=== PATIENT | male | born 1935 ===

== ENCOUNTER 2017-09-05 08:19 | Inpatient (IN) | payer OTHER ==
[2017-08-22 13:57] VITALS: Ht 174 cm; Wt 68.4 kg
--- NOTE | 2017-08-22 14:52 | PAT Medication Instructions ---
Service Date Aug 22, 2017. Current Home Medication List Acetaminophen (Tylenol Arthritis Ext Rel), 650 MG PO BID Albuterol Hfa (Ventolin Hfa), Unknown Dose INH UD PRN for Shortness of Breath Albuterol Hfa (Ventolin Hfa), 2-4 PUFFS INH Q6H Aspirin (Aspirin Ec), 81 MG PO QAM Calcium (Calcium), 1 TAB PO QAM Isosorbide Mononitrate Ext Rel (Imdur Ext Rel), 1 TAB PO QAM Latanoprost (Xalatan 0.005% Oph Caroline), 1 DROPS OP HS Lisinopril (Zestril), 2.5 MG PO QAM Metoprolol Tartrate (Lopressor) (Lopressor), 12.5 MG PO HS Ocuvite Preservision (Ocuvite Preservision), 1 TAB PO QAM Ranitidine (Zantac), 1 TAB PO BID Simvastatin (Simvastatin), 1 TAB PO HS Tiotropium [place] (Spiriva Handihaler), 1 CAP INH QAM Tramadol (Ultram), 1 TAB PO Q6 PRN for Pain Trolamine Salicylate (Aspercreme), Unknown Dose TOP UD PRN for Pain Warfarin Sodium (Coumadin), 5 MG PO 5XWK Warfarin Sodium (Coumadin), 2.5 MG PO 2XWK Medication Instructions For Your Scheduled Surgery -Follow your prescriber's instructions for: Warfarin Sodium (Coumadin), 5 MG PO 5XWK Warfarin Sodium (Coumadin), 2.5 MG PO 2XWK - Hold the following medications 24 hours prior to surgery: Trolamine Salicylate (Aspercreme), Unknown Dose TOP UD PRN for Pain - Hold the following medications the morning of surgery: Lisinopril (Zestril), 2.5 MG PO QAM Calcium (Calcium), 1 TAB PO QAM - Take the following medications the morning of surgery with a sip of water: Tiotropium [place] (Spiriva Handihaler), 1 CAP INH QAM Tramadol (Ultram), 1 TAB PO Q6 PRN for Pain (if needed) Isosorbide Mononitrate Ext Rel (Imdur Ext Rel), 1 TAB PO QAM Albuterol Hfa (Ventolin Hfa), Unknown Dose INH UD PRN for Shortness of Breath ( if needed, and bring with you to the hospital) Acetaminophen (Tylenol Arthritis Ext Rel), 650 MG PO BID (can be taken up to four hours before surgery) Ranitidine (Zantac), 1 TAB PO BID Ocuvite Preservision (Ocuvite Preservision), 1 TAB PO QAM - Take the following medications as scheduled the night before surgery: Tramadol (Ultram), 1 TAB PO Q6 PRN for Pain (if needed) Simvastatin (Simvastatin), 1 TAB PO HS Latanoprost (Xalatan 0.005% Oph Caroline), 1 DROPS OP HS Aspirin (Aspirin Ec), 81 MG PO QAM Acetaminophen (Tylenol Arthritis Ext Rel), 650 MG PO BID Ranitidine (Zantac), 1 TAB PO BID Metoprolol Tartrate (Lopressor) (Lopressor), 12.5 MG PO HS If you have any questions please call us at [phone] or [phone] or [phone]
[2017-08-22 15:46] LABS: URINE APPEARANCE CLEAR (CLEAR); URINE BILIRUBIN NEG (NEG); URINE COLOR YELLOW; URINE NITRITE NEG (NEG); URINE PH 7.5 (4.5-7.5); URINE SPECIFIC GRAVITY 1.018 (1.000-1.030); UROBILINOGEN NEG (NEG)
[2017-08-22 15:47] LABS: MANUAL MICROSCOPIC REQUIRED? NO; REVIEW REQ? NO
[2017-08-22 15:47] LABS: BASO % 0.4 %; BASO ABS # 0.03 K/uL (0-0.2); COMPLETE YES; EOS % 0.8 %; IG% 0.4 %; LYMPH % 15.1 %; LYMPH ABS # 1.28 K/uL (1.2-3.4); MEAN CELL VOLUME 94.9 fL (80-100); MEAN CORPUSCULAR HEMOGLOBIN 30.9 pg (25-34); MEAN CORPUSCULAR HGB CONC 32.6 g/dl (32-36); MEAN PLATELET VOLUME 9.2 fL (7.4-10.4); MONO % 11.7 %; NEUT % 71.6 %; PLATELET COUNT 234 K/uL (130-400); RED BLOOD COUNT 4.11 M/uL (4.7-6.1); WHITE BLOOD COUNT 8.46 K/uL (4.8-10.8)
--- NOTE | 2017-08-22 15:52 | DIAGNOSTIC IMAGING REPORT ---
TWO VIEW CHEST CLINICAL HISTORY: Preoperative examination. FINDINGS: PA and lateral chest radiographs are obtained. No prior studies are available for comparison at the time of dictation. The heart is top normal for projection. There is atherosclerotic calcification of the thoracic aorta. Enlargement of the central pulmonary arteries suggests pulmonary artery hypertension. Emphysematous changes suspected. There is nonspecific interstitial thickening. Bibasilar airspace opacities likely represent scarring/atelectasis. There is no airspace consolidation typical for pneumonia or pleural effusion. There is no pneumothorax. The skeletal structures are osteopenic. Advanced degenerative change and mild hyperkyphosis are seen in the thoracic spine. Thoracic compression deformities are noted. IMPRESSION: 1. Suspect emphysema. No acute cardiopulmonary abnormality is identified. 2. Bibasilar airspace opacities likely represent scarring/atelectasis. Clinical correlation will be required. Electronically signed by: Efe Elder M.D. 08/22/2017 3:51 PM Dictated Date/Time: 08/22/2017 3:49 PM
[2017-08-22 15:53] LABS: BUN/CREATININE RATIO 12.5 (10-20); CALCIUM 8.8 mg/dl (8.5-10.1); CREATININE 1.01 mg/dl (0.60-1.40); POTASSIUM 4.5 mmol/L (3.5-5.1)
[2017-08-22 16:02] LABS: INR 3.5 (0.9-1.1); PARTIAL THROMBOPLASTIN RATIO 1.7; PROTHROMBIN TIME (PATIENT) 35.6 SECONDS (9.0-12.0)
[2017-08-23 06:18] LABS: ESTIMATED AVERAGE GLUCOSE 123 mg/dl; HA1C FLAG Normal (Normal)
--- NOTE | 2017-09-02 16:33 | History and Physical ---
History & Physical Date Sep 02, 2017. Chief Complaint Left shoulder pain History of Present Illness The patient is a 82 year old male with complaints of left shoulder pain for several years. He has tried conservative therapy with no relief. He will be scheduled for a left shoulder Rotator cuff repair, Subacromial decompression. Past Medical/Surgical History PMHx: Hypertension, Hypercholesterolemia, COPD, Sleep Apnea, TIA, Stent Placement, SOB with activity, Osteoarthritis Allergies Coded Allergies: No Known Allergies (Unverified , 08/22/17) Home Medications Scheduled Acetaminophen (Tylenol Arthritis Ext Rel), 650 MG PO BID Albuterol Hfa (Ventolin Hfa), 2-4 PUFFS INH Q6H Aspirin (Aspirin Ec), 81 MG PO QAM Calcium (Calcium), 1 TAB PO QAM Isosorbide Mononitrate Ext Rel (Imdur Ext Rel), 1 TAB PO QAM Latanoprost (Xalatan 0.005% Oph Caroline), 1 DROPS OP HS Lisinopril (Zestril), 2.5 MG PO QAM Metoprolol Tartrate (Lopressor) (Lopressor), 12.5 MG PO HS Ocuvite Preservision (Ocuvite Preservision), 1 TAB PO QAM Ranitidine (Zantac), 1 TAB PO BID Simvastatin (Simvastatin), 1 TAB PO HS Tiotropium [place] (Spiriva Handihaler), 1 CAP INH QAM Warfarin Sodium (Coumadin), 5 MG PO 5XWK Warfarin Sodium (Coumadin), 2.5 MG PO 2XWK Scheduled PRN Albuterol Hfa (Ventolin Hfa), Unknown Dose INH UD PRN for Shortness of Breath Tramadol (Ultram), 1 TAB PO Q6 PRN for Pain Trolamine Salicylate (Aspercreme), Unknown Dose TOP UD PRN for Pain Physical Examination Skin: warm/dry, no rash Eyes: normal inspection, EOMI ENT: normal ENT inspection Head: normocephalic, atraumatic Neck: supple, no adenopathy Respiratory/Chest: lungs clear, normal breath sounds Cardiovascular: regular rate, rhythm Abdomen / GI: normal bowel sounds, non tender Extremities: normal inspection, + pertinent finding (decreased ROM and strength of the left arm, (+) empty can test) Neurologic/Psych: no motor/sensory deficits, alert, oriented x 3 Diagnosis Left shoulder rotator cuff tear Plan of Treatment Patient is scheduled for a left shoulder rotator cuff repair subacromial decompression. He has failed conservative measures. He would like to proceed with surgery. Risks and benefits to surgery were discussed the patient and he understands the risks. He will go back on his coumadin after surgery.
[2017-09-05] VITALS (10 sets, daily range): BP systolic 111–138; BP diastolic 58–77; PULSE 70–105; TEMP 36.5–37.5; O2SAT 90–95
[~2017-09-05] VITALS: Ht 174 cm; Wt 68.4 kg
[~2017-09-05 08:19] MED LIST: ACET1TAB84 PO; ASPI81TA28 PO; ATROPINE SULFATE 0.1 MG/ML 5ML SYR IV PRN; CALC600T37 PO; CEFAZOLIN 1000MG IV PUSH 5 ML IV SCH; EpHEDrine SULFATE INJ 50 MG/ML AMP IV PRN; FENTANYL CITRATE INJ 50 MCG/1 ML 2 ML VIAL IV PRN; ISOS30TA35 PO; LACTATED RINGER'S 1000ML 1,000 ML IV SCH; LATA0.5S OP; LISI-729 PO; METO25TA56 PO; MULT-190 PO; ONDANSETRON INJ 2 MG/ML 2 ML VIAL IV PRN; ROPIVACAINE 0.5% 5 MG/ML 30 ML VIAL ONE; SIMV-150 PO; SPRIN/30 INH; TRAM-10 PO; TROL10LO TOP; VNTHFA/IN INH; WARF2TAB PO; WARF5TAB90 PO; ZNTT/150 PO
[2017-09-05] MEDS ORDERED: MIDAZOLAM HCL 1 MG/ML 2ML VIAL ONE (08:45)
[2017-09-05] MEDS ORDERED: FENTANYL CITRATE INJ 50 MCG/1 ML 2 ML VIAL ONE (08:46)
[2017-09-05] MEDS ORDERED: ENOX40IN SQ (08:57)
[2017-09-05 09:13] LABS: INR 1.1 (0.9-1.1); PROTHROMBIN TIME (PATIENT) 11.5 SECONDS (9.0-12.0)
--- NOTE | 2017-09-05 09:22 | History & Physical Bridge Note ---
H&P Re-Evaluation Bridge Note: I have examined the patient, reviewed the History & Physical and in the interval since the performance of the History & Physical I have noted the following changes of clinical significance: No changes noted
[2017-09-05] MEDS ORDERED: BUPIVACAINE 0.5 % 5 MG/1 ML MPF 30ML VIAL ONE (09:40)
[2017-09-05] MEDS ORDERED: EpINEphrine HCL INJ 1 MG/ML 5ML SYRINGE ONE (09:40)
[2017-09-05] MEDS ORDERED: BUPIVACAINE 0.25% 30 ML VIAL ONE (10:32)
[2017-09-05] MEDS ORDERED: GLYCOPYRROLATE INJ 0.2 MG/ML VIAL ONE (12:00)
[2017-09-05] MEDS ORDERED: NEOSTIGMINE METHYLSULFATE 5 MG/5 ML SYR ONE (12:00)
[2017-09-05] MEDS ORDERED: PROPOFOL IV EMULSION 10 MG/ML 20 ML VIAL IV ONE (12:00)
[2017-09-05] MEDS ORDERED: LIDOCAINE HCL 2% 2 ML VIAL (20MG/ML) ONE (12:00)
[2017-09-05] MEDS ORDERED: SODIUM CHLORIDE 0.9% 1000ML 1,000 ML IV SCH (12:23)
[2017-09-05] MEDS ORDERED: OXYC-57 PO (12:26)
[2017-09-05] MEDS ORDERED: OXYCODONE/ACETAMINOPHEN 5-325 TAB PO PRN ×2 (12:30)
[2017-09-05] MEDS ORDERED: ONDANSETRON INJ 2 MG/ML 2 ML VIAL IV PRN ×2 (12:30→16:45)
--- NOTE | 2017-09-05 12:31 | Discharge Instructions ---
Discharge Instructions Date of Service Sep 05, 2017. Admission Reason for Admission: Impingement Syndrome Of Left Shoulder, Unspecified Discharge Discharge Diagnosis / Problem: S/P left shoulder Rotator cuff repair, Subacromial decompression Discharge Goals Goal(s): Decrease discomfort, Improve function Activity Recommendations Activity Limitations: per Instructions/Follow-up section . Instructions / Follow-Up Instructions / Follow-Up [facility] DISCHARGE INSTRUCTIONS: ROTATOR CUFF REPAIR SELF CARE INSTRUCTIONS A. You are permitted to loosen your sling/immobilizer to move your elbow, wrist , and hand to prevent stiffness. You should use your well arm (good arm) to assist the operated extremity when trying to raise the arm away from the body, hygiene purposes. Do NOT actively try to use/engage your shoulder muscles in operative arm at this time. You should NOT do overhead activity, lifting, or attempt to reach behind your back. B. You may start Physical Therapy upon discharge. You will be provided a prescription for therapy with specific restrictions, if needed, at time of discharge. C. At 48 hours post-operatively, you may change your dressing. Use band-aids and change daily. You are allowed to shower at this time and get the incision area wet, but DO NOT soak or submerge incision area in water. (No baths, swimming pools, hot tubs) D. Do NOT apply soap or any ointment/lotions directly over incision. E. You may use ice as needed to operative shoulder SPECIAL CARE INSTRUCTIONS: VERY IMPORTANT TO READ AND REVIEW A. There are a few signs you need to watch for after you are home. Call [facility] at [phone] if you experience any of the following: a. Increased severe shoulder pain. Some pain is expected especially when you exercise b. Increased swelling in your shoulder or arm; pain or swelling in either upper extremity. (Note: swelling and stiffness is normal and expected for several weeks post op, depending on type of shoulder surgery you had). c. Any fluid or drainage from the incision; redness of the incision. d. Shortness of breath or chest pain. B. Please call [facility] at [phone] if you have any questions or concerns about your operation or recovery. C. Call your physician if: a. Temperature is greater than 101 degrees (F). b. Pain is not relieved by prescribed pain medications. c. Increase drainage or redness from incision. d. Unanswered questions or concerns. D. Pain Medication: a. You will be prescribed pain medication upon discharge that should last till your first post-operative appointment. b. If you experience nausea and/or skin rash, discontinue this medication and contact our office for an alternative medication. c. Caution- narcotic pain medication can cause constipation. FOLLOW UP VISIT: Please call [facility] at [phone] to schedule a follow up appointment 10-14 days from your surgery date with Dr. Lopez or his PA. PLEASE FOLLOW UP WITH YOUR COUMADIN CLINIC A 3-4 DAYS AFTER YOUR SURGERY TO MAKE SURE YOUR INR LEVELS ARE THERAPEUTIC. PLEASE TAKE LOVENOX FOR 2 DAYS WHILE STARTING UP YOUR COUMADIN AGAIN. YOU MAY START RIGHT AFTER YOUR SURGERY. Current Hospital Diet Patient's current hospital diet: Discharge Diet Recommended Diet: Regular Diet Procedures Procedures Performed: Left Shoulder Arthroscopic Subacromial Decompression and Rotator Cuff Repair Pending Studies Studies pending at discharge: no Laboratory Results Hemoglobin A1c Test 08/22/17 15:10 Range/Units Estimated Average Glucose 123 mg/dl Hemoglobin A1c 5.9 H 4.5-5.6 % Medical Emergencies . Who to Call and When: Medical Emergencies: If at any time you feel your situation is an emergency, please call 911 immediately. . Non-Emergent Contact Non-Emergency issues call your: Surgeon Call Non-Emergent contact if: temperature is above 101.5, your pain is worsening, wound has increased redness . "Provider Documentation" section prepared by Bill Munson. . VTE Core Measure Inpt VTE Proph given/why not?: Enoxaparin (Lovenox)SQ (patient previously on warfarin. ), Warfarin (Coumadin) [place] Drug Monitoring Program Search Results: patient reviewed within database, no issues identified
--- NOTE | 2017-09-05 13:47 | Anesthesiology Progress Note ---
Anesthesia Post Op Note Date & Time Sep 05, 2017 at 13:47 Vital Signs Pain Intensity: 0 Vital Signs Past 12 Hours Date Time Temp Pulse Resp B/P (MAP) Pulse Ox O2 Delivery O2 Flow Rate FiO2 09/05/17 13:20 36.5 70 20 138/59 92 Nasal Cannula 2 09/05/17 13:10 74 20 141/84 92 Oxymask 2 09/05/17 13:00 36.7 74 14 139/74 94 Nasal Cannula 2 09/05/17 12:50 73 21 154/70 98 Oxymask 10 09/05/17 12:40 72 21 149/93 98 Oxymask 10 09/05/17 12:30 82 20 162/80 98 Oxymask 10 09/05/17 12:22 36.5 85 22 146/92 98 Oxymask 10 09/05/17 08:59 36.7 86 20 123/77 (92) 95 Room Air Notes Mental Status: alert / awake / arousable, participated in evaluation Pt Amnestic to Procedure: Yes Nausea / Vomiting: adequately controlled Pain: adequately controlled Airway Patency, RR, SpO2: stable & adequate BP & HR: stable & adequate Hydration State: stable & adequate Anesthetic Complications: no major complications apparent
--- NOTE | 2017-09-05 13:53 | [facility] Operative Report ---
Operative Report Operative Date Sep 05, 2017. Pre-Operative Diagnosis Left shoulder rotator cuff tear, impingement, biceps tear, synovitis, labral tear Post-Operative Diagnosis Same Procedure(s) Performed Left Shoulder Arthroscopic Subacromial Decompression and Rotator Cuff Repair, biceps tenotomy, extensive debridement Surgeon Dr. Lopez Associate Software Engineer Surgeon(s) Bill Munson PA-C Estimated Blood Loss 2 cc Findings As above Specimens none per surgeon Drains none Anesthesia Gen. Complication(s) None Disposition Recovery Room / PACU Indications 82-year-old male long-standing pain left shoulder. His fell conservative measures including cortisone injections and therapy and a Saad to medications. We will also evaluate his cervical spine is found to not be treating factors shoulder pain. He wishes to proceed with arthroscopic rotator cuff repair. Description of Procedure The MRI demonstrated a full-thickness rotator cuff tear. We discussed various treatment measures. The patient wished to proceed with arthroscopic repair. Risks, benefits and alternatives to surgery including, but not limited to, infection DVT, pain, stiffness, need for revision surgery, failure to relieve all symptoms, damage to blood vessels, damage to nerves, risk of anesthesia were discussed with the patient and they wished to proceed. The patient was identified. Laterality was confirmed and marked. The patient received a preoperative antibiotic as well as an interscalene block. They were transferred to the operating room and placed in the supine position and induced into general endotracheal anesthesia per the anesthesia staff. The patient was then safely transferred to the lateral decubitus position, secured by a beanbag. An axillary roll was placed. All pressure points were well-padded. The limb was placed in 10 pounds of lateral traction and then prepped and draped in the usual standard manner with ChloraPrep. The portal sites were anesthetized with 2% lidocaine with epinephrine. I made a standard posterior viewing portal made through a stab incision and then bluntly entered the glenohumeral joint. Then under spinal needle localization, I establish an anterior superolateral portal. The patient had a full-thickness rotator cuff tear through the supraspinatus . They had a degenerative tear in the anterior, superior and posterior aspects of the glenoid labrum. This was debrided back to a stable base utilizing a shaver. Synovitic change in the anterior aspect of the joint was debrided utilizing a shaver. The cartilage of the humeral head and glenoid had some minor degeneration. There was tearing of the long head of the biceps tendon constituting greater than 50% thickness of the tendon. I released the biceps tendon from its insertion to the superior labrum with a cautery wand. The subscapularis had some minor fraying. I then removed the instrumentation from the joint and entered the subacromial space and established a lateral portal. There was a full-thickness rotator cuff tear that measured about 1 cm in diameter. I debrided the footprint with a shaver to establish a good bleeding response. Through a stab incision I placed a 5.5 mm HEALICOIL suture anchor. I passed the ultra braid sutures in a horizontal mattress with a fast passive scorpion. I then took 1 ULTRABRAID suture from each knot I placed them in a 5.5 mm Multifix S suture anchor. I then released the CA ligament with cautery and performed a subacromial decompression, first removing the anterior inferior spur from laterally and then completing with a cutting block technique. All instrumentation was then removed from the shoulder. Portal sites were closed with nylon. A sterile dressing was applied and a sling placed. All needle and sponge counts were correct at the end of the procedure. The patient was transferred to the PACU in stable condition without apparent complication. I attest to the content of the Intraoperative Record and any orders documented therein. Any exceptions are noted below.
--- NOTE | 2017-09-05 15:39 | Anesthesiology Progress Note ---
Anesthesia Progress Note Date of Service Sep 05, 2017. Progress Notes Mr. Alvarez was sent to same day recovery with the intent to wean from oxygen. After several hours he was unable to be fully removed from [place] oxygen despite him getting OOB, ambulating, urinating and using ISB. Of note, prior to surgery he became very short of breath just walking from the bed to the bathroom and back. I felt it was best patient remains in the hospital at least overnight with continuous pulse oximetry, supplemental oxygen and his BiPAP that he uses at home. Orthopedic surgeon is aware and plans to admit and consult internal medicine service for assistance with management. Patient and his family members are in agreement. All questions answered.
[2017-09-05] MEDS ORDERED: SOD PHOSPHATE/SOD BIPHOSPHATE ENEMA 132 ML BTL PR PRN (16:45)
[2017-09-05] MEDS ORDERED: MAGNESIUM HYDROXIDE SUSP 30 ML UDC PO PRN (16:45)
[2017-09-05] MEDS ORDERED: ALUMINUM/MAGNESIUM SUSP 30 ML UDC PO PRN (16:45)
[2017-09-05] MEDS ORDERED: BISACODYL 10 MG SUPP PR PRN (16:45)
[2017-09-05] MEDS ORDERED: ZOLPIDEM TARTRATE 5 MG TAB PO PRN (16:45)
[2017-09-05] MEDS: FERROUS GLUCONATE 324 MG TAB PO SCH (18:00)
[2017-09-05] MEDS ORDERED: NURSING DECISION MEDICATION ORDER SCH (19:30)
[2017-09-05] MEDS ORDERED: COUGH DROP (SUGAR FREE) LOZ 24 LOZ/1 BOX PO PRN (19:45)
--- NOTE | 2017-09-05 19:53 | Consultant Recommendations ---
[employer] Recommendations Date of Service Sep 05, 2017. [employer] Recommendations Unable to correct warfarin dosing on med rec but per PCP, patient is to be on warfarin 5mg today (09/05/17) and tomorrow. He is then to follow up with PCP to check INR and reevaluate dosing. Please make sure patient is discharged on correct dose.
--- NOTE | 2017-09-05 19:55 | Medical Consult ---
Consultation Date of Consultation: Sep 05, 2017. Attending Physician: Chidi Lopez M.D. Reason for Consultation: Post-op medical management History of Present Illness This is an 82yo M with a PMH of COPD, HTN, HLD, JESSICA (on cpap), CAD (s/p stenting in 2012), h/o TIA and OA who is POD#0 s/p left TSA with rotator cuff repair. Patient sees Dr. Knowles of [facility] as his PCP. Is doing well post- operatively. Was initially supposed to be discharged today but due to patients SOB and requirement of O2, he is being kept overnight for observation. Patient states that he has exertional dyspnea and wheezing at baseline but does not use home O2. States that he uses his inhalers regularly. Per discussion with daughter, patient seems more SOB post-operatively than his normal baseline. 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 He has been on alliances consultant anticoagulation with coumadin as a result. Coumadin was stopped pre-operatively with instructions from his PCP to restart directly following surgery as well as bridging with lovenox until coumadin is therapeutic. Denies any fever, chills, pain in his shoulder, chest pain, abd pain, nausea, vomiting, dysuria, LE swelling. Has been urinating frequently post-operatively. Tolerated dinner without a problem. Past Medical/Surgical History Medical Problems: (1) COPD (chronic obstructive pulmonary disease) Status: Chronic (2) H/O TIA (transient ischemic attack) and stroke Status: Chronic (3) HLD (hyperlipidemia) Status: Chronic (4) HTN (hypertension) Status: Chronic (5) JESSICA on CPAP Status: Chronic (6) Presence of stent in coronary artery in patient with coronary artery disease Status: Chronic Surgical Problems: (1) Status post reverse total arthroplasty of left shoulder Status: Resolved Family History Father with DM II and HTN. Social History Smoking Status: Former Smoker Alcohol Use: occasionally Marital Status: Housing Status: lives with significant other Occupation Status: retired Allergies Coded Allergies: No Known Allergies (Unverified , 09/05/17) Home Medications Home Meds and Scripts Medications Dose Route/Sig Max Daily Dose Days Date Category Dose Instructions Percocet 5MG/325MG (Oxycodone/Acetaminophen) Tab 1-2 Tablets PO Q4-6H PRN 09/05/17 Rx Lovenox (Enoxaparin Sodium) 40 Mg/0.4 Ml Inj 40 Mg SQ Q12H 09/05/17 Reported Ventolin Hfa (Albuterol) 200 Puffs/29923 Mcg Aers 2-4 Puffs INH Q6H 08/22/17 Reported Aspercreme (Trolamine Salicylate) Unknown Strength Lot Unknown Dose TOP UD PRN 08/22/17 Reported Xalatan 0.005% Oph Caroline (Latanoprost) 0.005 % Caroline 1 Drops OP HS 08/22/17 Reported Lopressor (Metoprolol Tartrate) 25 Mg Tab 12.5 Mg PO HS 08/22/17 Reported Simvastatin 10 Mg Tab 1 Tab PO HS 08/22/17 Reported Coumadin (Warfarin Sodium) 2 Mg Tab 2.5 Mg PO 2XWK 08/22/17 Reported WED AND SAT - TAKES IN PM PT RECEIVED INSTRUCTIONS FOR PREOP LOVENOX BY PCP Coumadin (Warfarin Sodium) 5 Mg Tab 5 Mg PO 5XWK 08/22/17 Reported SUN, MON, TUE, THUR AND FRI - TAKES IN PM HAS PRE OP INSTRUCTIONS FOR LOVENOX BY FAMILY DOC Aspirin Ec (Aspirin) 81 Mg Tab 81 Mg PO QAM 08/22/17 Reported Spiriva Handihaler (Tiotropium Lagrange) 30 Puff/540 Mcg Aerp 1 Cap INH QAM 08/22/17 Reported Zantac (Ranitidine HCl) 150 Mg Tab 1 Tab PO BID 30 08/22/17 Reported Imdur Ext Rel (Isosorbide Mononitrate) 30 Mg Tabcr 1 Tab PO QAM 08/22/17 Reported Zestril (Lisinopril) 5 Mg Tab 2.5 Mg PO QAM 08/22/17 Reported Ocuvite Preservision (Multivitamins/Minerals) 1 Tab Tab 1 Tab PO QAM 08/22/17 Reported Calcium 600 Mg Tab 1 Tab PO QAM 08/22/17 Reported Tylenol Arthritis Ext Rel (Acetaminophen) 650 Mg Cplt 650 Mg PO BID 08/22/17 Reported Current Inpatient Medications Current Inpatient Medications Medications (Trade) Dose Ordered Sig/Fede Route Start Time Stop Time Status Last Admin Dose Admin Lactated Ringer's 1,000 ml @ 15 mls/hr Q24H IV 09/05/17 06:00 09/06/17 05:59 09/05/17 09:26 15 MLS/HR Sodium Chloride 1,000 ml @ 15 mls/hr Q24H IV 09/05/17 12:23 09/06/17 12:22 09/05/17 18:46 15 MLS/HR Oxycodone/ Acetaminophen (Percocet 5-325mg Tab) `1-2 TABS FOR PAIN `1 TAB... Q6H PRN PO 09/05/17 16:45 09/19/17 16:44 Diphenhydramine HCl (Benadryl Cap) 25 mg Q8 PRN PO 09/05/17 16:45 10/05/17 16:44 Zolpidem Tartrate (Ambien Tab) 5 mg HSZ PRN PO 09/05/17 16:45 10/05/17 16:44 Ondansetron HCl (Zofran Inj) 4 mg Q6H PRN IV 09/05/17 16:45 10/05/17 16:44 Al Hydroxide/Mg Hydroxide (Maalox Susp) 30 ml Q4H PRN PO 09/05/17 16:45 10/05/17 16:44 Pantoprazole Sodium (Protonix Tab) 40 mg QAM PO 09/06/17 09:00 10/06/17 08:59 Magnesium Hydroxide (Milk Of Magnesia Susp) 30 ml Q6H PRN PO 09/05/17 16:45 10/05/17 16:44 Bisacodyl (Dulcolax Supp) 10 mg DAILY PRN [place] 09/05/17 16:45 10/05/17 16:44 Sodium Biphosphate/ Sodium Phosphate (Fleet Enema) 132 ml DAILY PRN [place] 09/05/17 16:45 10/05/17 16:44 Senna (Senokot Tab) 17.2 mg HS PO 09/05/17 21:00 10/05/17 20:59 Docusate Sodium (coLACE CAP) 100 mg BID PO 09/05/17 21:00 10/05/17 20:59 Multivitamins (Multivitamin Tab) 1 tab DAILY PO 09/06/17 09:00 10/06/17 08:59 Ferrous Gluconate (Ferrous Gluconate Tab) 324 mg TIDM PO 09/05/17 18:00 10/05/17 17:59 Menthol (Nice Valencia) 1 valencia PRN PRN PO 09/05/17 19:45 10/05/17 19:44 Enoxaparin Sodium (Lovenox Inj) 40 mg Q24H SC 09/05/17 19:45 10/05/17 19:44 UNV Miscellaneous (Xopenex/ Atrovent Neb) 1 ea Q6R INH 09/05/17 21:00 10/05/17 20:59 UNV Review of Systems Ten systems reviewed and negative except as noted in the HPI. Physical Exam Date Time Temp Pulse Resp B/P (MAP) Pulse Ox O2 Delivery O2 Flow Rate FiO2 09/05/17 19:37 36.8 86 16 126/58 (80) 95 Nasal Cannula 3.0 09/05/17 17:00 87 20 127/68 94 Nasal Cannula 2 09/05/17 16:00 84 20 116/64 95 Nasal Cannula 2 09/05/17 15:00 79 20 111/61 94 Nasal Cannula 2 09/05/17 13:50 76 20 126/70 93 Nasal Cannula 2 09/05/17 13:20 36.5 70 20 138/59 92 Nasal Cannula 2 09/05/17 13:10 74 20 141/84 92 Oxymask 2 09/05/17 13:00 36.7 74 14 139/74 94 Nasal Cannula 2 09/05/17 12:50 73 21 154/70 98 Oxymask 10 09/05/17 12:40 72 21 149/93 98 Oxymask 10 09/05/17 12:30 82 20 162/80 98 Oxymask 10 09/05/17 12:22 36.5 85 22 146/92 98 Oxymask 10 09/05/17 08:59 36.7 86 20 123/77 (92) 95 Room Air General Appearance: WD/WN, no apparent distress (Resting comfortable with NC O2. Intermittent accessory muscle use when talking. ) Head: normocephalic, atraumatic Eyes: normal inspection, PERRL, sclerae normal ENT: normal ENT inspection, hearing grossly normal, pharynx normal (moist mucous membranes ) Neck: supple, no JVD, trachea midline Respiratory/Chest: chest non-tender, no respiratory distress, + decreased breath sounds, + wheezing (Scattered expiratory wheezing ), + pertinent finding (Occasional accessory muscle use when patient is exerting himself ) Cardiovascular: regular rate, rhythm, no murmur, normal peripheral pulses Abdomen/GI: non tender, soft, no organomegaly Back: normal inspection Extremities/Musculoskelatal: normal inspection, no calf tenderness, no pedal edema Neurologic/Psych: no motor/sensory deficits, alert, normal mood/affect, oriented x 3 Skin: normal color, warm/dry, no rash Laboratory Results Last 24 Hours Test 09/05/17 08:57 Prothrombin Time 11.5 SECONDS Prothromb Time International Ratio 1.1 Activated Partial Thromboplast Time 26.8 SECONDS Partial Thromboplastin Ratio 1.0 Assessment & Plan This is an 82yo M with a PMH of COPD, HTN, HLD, JESSICA (on cpap), CAD (s/p stenting in 2012), h/o TIA and OA who is POD#0 s/p left TSA with rotator cuff repair. S/p Left TSA with rotator cuff: -POD#[address] Lopez -Pt is doing well post-operatively -Per ortho for pain control, wound care, anticoagulation and activities -Monitor H&H, continue incentive spirometry, PT/OT when appropriate Shortness of breath: -2/2 underlying moderate COPD, possible fluid overload biju-operatively -No known CHF -O2 saturation in mid-90s on 3L NC O2 -Xopenex nebulizers -Cont home inhalers -20mg IV lasix x 1 HTN: -Normotensive -Cont lisinopril, imdur, metoprolol in AM with parameters HLD: -Cont statin JESSICA (on cpap): -Using own cpap CAD (s/p stenting in 2012): -Stable. No CP or ischemic change on EKG -Cont aspirin, imdur, metoprolol H/o TIA: -Per surgery, please follow up with coumadin clinic 3-4 days after to reassess INR levels -Bridge with lovenox for 2 days while re-initiating warfarin at 5mg daily DVT Ppx: Lovenox SQ, warfarin reinitiated Code status: FULL PCP: [facility] ([facility]) Dispo: Per ortho Patient seen in collaboration with Dr. Richard. Please see addendum. Will be seen by Dr Aragon tomorrow. Attending Addendum: S/P Left Shoulder replacement with H/O COPD ,JESSICA Required prolong period to wean off oxygen following surgery Desaturation ,with wheezing and SOB No Chest pain,palpitation O/E Moderate SOB at rest Hemodynamically stable Chest-decreased breath sound bilaterally with widespread wheezing Heart- Regular,no murmur appreciated Abdomen-benign Labs and Imaging studies were reviewed Mild COPD exacerbation following Anesthesia No CHF and Cardiac issue Nebs,Oxygen,IV Lasix and CPAP Reassured Agree with assessment and plan. Dr Malcolm Richard Thank you for this consultation. We will follow the patient with you during their hospital stay. You can reach a member of the [facility] Hospitalist Team 08/04 via pager @ .
[2017-09-05] MEDS ORDERED: IV FLUIDS COMPLETED PRN (20:00)
--- NOTE | 2017-09-05 20:22 | DIAGNOSTIC IMAGING REPORT ---
CHEST ONE VIEW PORTABLE HISTORY: Short of breath. COMPARISON: Chest 08/22/2017. FINDINGS: Mild elevation of the left hemidiaphragm. This has slightly progressed. No pneumothorax. No pleural effusions. Mild diffuse interstitial thickening is likely chronic. Left basilar linear densities favor subsegmental atelectasis. The right lung is essentially clear. The heart is normal in size. IMPRESSION: Mild elevation of the left hemidiaphragm with left basilar linear densities suggesting subsegmental atelectasis. Electronically signed by: Florencio Obrien M.D. 09/05/2017 8:20 PM Dictated Date/Time: 09/05/2017 8:19 PM
[2017-09-05] MEDS: OXYCODONE/ACETAMINOPHEN 5-325 TAB PO PRN (20:27)
[2017-09-05] MEDS ORDERED: FUROSEMIDE INJ 20 MG in SYRINGE 0 ML IV ONE (20:30)
[2017-09-05] MEDS: DOCUSATE SODIUM 100 MG CAP PO SCH (20:30)
[2017-09-05] MEDS: SENNA 8.6 MG TAB PO SCH (20:30)
[2017-09-05] MEDS: WARFARIN SOD 5 MG TAB PO SCH (20:31)
[2017-09-05] MEDS ORDERED: LEVALBUTEROL 1.25MG/0.5ML NEB INH ONE (20:45)
[2017-09-05] MEDS ORDERED: LEVALBUTEROL 1.25MG/0.5ML NEB INH PRN (20:45)
[2017-09-05] MEDS ORDERED: IPRATROPIUM BROMIDE NEB SOLN 0.02% 2.5 ML VIAL INH PRN (20:45)
[2017-09-05] MEDS ORDERED: IPRATROPIUM BROMIDE NEB SOLN 0.02% 2.5 ML VIAL INH ONE (20:45)
[2017-09-05] MEDS ORDERED: IPRATROPIUM BROMIDE NEB SOLN 0.02% 2.5 ML VIAL INH SCH (21:00)
[2017-09-05] MEDS ORDERED: LEVALBUTEROL/IPRATROPIUM NEB INH SCH (21:00)
[2017-09-05] MEDS ORDERED: LEVALBUTEROL 1.25MG/0.5ML NEB INH SCH (21:00)
[2017-09-05] MEDS: ENOXAPARIN 40 MG/0.4 ML SYR SC SCH (21:03)
[2017-09-06] VITALS (8 sets, daily range): BP systolic 121–153; BP diastolic 74–83; PULSE 80–96; TEMP 36.6–37.4; O2SAT 87–96
[2017-09-06] MEDS: OXYCODONE/ACETAMINOPHEN 5-325 TAB PO PRN ×4 (00:27→18:25)
[2017-09-06 05:42] LABS: HEMATOCRIT 37.6 % (42-52); MEAN CELL VOLUME 94.7 fL (80-100); MEAN CORPUSCULAR HEMOGLOBIN 30.5 pg (25-34); MEAN CORPUSCULAR HGB CONC 32.2 g/dl (32-36); MEAN PLATELET VOLUME 9.6 fL (7.4-10.4); PLATELET COUNT 147 K/uL (130-400); RED BLOOD COUNT 3.97 M/uL (4.7-6.1); WHITE BLOOD COUNT 8.97 K/uL (4.8-10.8)
[2017-09-06 05:54] LABS: INR 1.1 (0.9-1.1); PROTHROMBIN TIME (PATIENT) 11.2 SECONDS (9.0-12.0)
[2017-09-06 06:09] LABS: BUN/CREATININE RATIO 13.2 (10-20); CREATININE 1.09 mg/dl (0.60-1.40); MAGNESIUM 1.8 mg/dl (1.8-2.4)
--- NOTE | 2017-09-06 08:24 | Anesthesiology Progress Note ---
Anesthesia Post Op Note Date & Time Sep 06, 2017 at 08:24 Vital Signs Pain Intensity: 2.0 Vital Signs Past 12 Hours Date Time Temp Pulse Resp B/P (MAP) Pulse Ox O2 Delivery O2 Flow Rate FiO2 09/06/17 07:34 36.6 89 19 143/83 (103) 96 Nasal Cannula 2.0 09/06/17 07:25 Nasal Cannula 2.0 09/06/17 06:02 96 Nasal Cannula 2.0 09/06/17 06:00 87 Room Air 09/06/17 03:29 37.2 87 16 137/79 (98) 96 CPAP 09/06/17 00:30 80 09/06/17 00:30 CPAP 09/05/17 22:52 37.5 105 18 124/73 (90) 94 CPAP 09/05/17 21:44 Nasal Cannula 2.0 94 BiPAP 09/05/17 21:20 86 20 90 Nasal Cannula 3.0 Notes Mental Status: alert / awake / arousable, participated in evaluation Pt Amnestic to Procedure: Yes Nausea / Vomiting: adequately controlled Pain: adequately controlled Airway Patency, RR, SpO2: stable & adequate BP & HR: stable & adequate Hydration State: stable & adequate Anesthetic Complications: no major complications apparent
[2017-09-06] MEDS: MULTIVITAMIN TAB PO SCH (08:36)
[2017-09-06] MEDS: FERROUS GLUCONATE 324 MG TAB PO SCH ×3 (08:36→19:06)
[2017-09-06] MEDS: DOCUSATE SODIUM 100 MG CAP PO SCH ×2 (08:37→21:17)
[2017-09-06] MEDS: PANTOprazole SOD 40 MG TAB PO SCH (08:37)
--- NOTE | 2017-09-06 14:46 | Orthopedic Progress Note ---
Orthopedic Progress Note Date of Service Sep 06, 2017. Subjective Post OP Day: 1 Reports: feeling well, pain controlled w PO medications, Denies: complaints, chest pain, SOB, nausea / vomiting, light headedness, calf pain Objective calves soft nontender, N/V intact, capillary refill less than 2 sec., dressing C /D/I, A&O x3, toes mobile Date Time Temp Pulse Resp B/P (MAP) Pulse Ox O2 Delivery O2 Flow Rate FiO2 09/06/17 12:07 36.8 80 18 153/80 (104) 95 Nasal Cannula 2.0 09/06/17 07:34 36.6 89 19 143/83 (103) 96 Nasal Cannula 2.0 09/06/17 07:25 Nasal Cannula 2.0 09/06/17 06:02 96 Nasal Cannula 2.0 09/06/17 06:00 87 Room Air 09/06/17 03:29 37.2 87 16 137/79 (98) 96 CPAP 09/06/17 00:30 80 09/06/17 00:30 CPAP 09/05/17 22:52 37.5 105 18 124/73 (90) 94 CPAP 09/05/17 21:44 Nasal Cannula 2.0 94 BiPAP 09/05/17 21:20 86 20 90 Nasal Cannula 3.0 09/05/17 19:37 36.8 86 16 126/58 (80) 95 Nasal Cannula 3.0 09/05/17 17:50 92 Nasal Cannula 2.0 09/05/17 17:50 36.8 92 22 134/72 (92) 92 Nasal Cannula 2.0 09/05/17 17:50 92 Nasal Cannula 2.0 09/05/17 17:00 87 20 127/68 94 Nasal Cannula 2 09/05/17 16:00 84 20 116/64 95 Nasal Cannula 2 09/05/17 15:00 79 20 111/61 94 Nasal Cannula 2 Laboratory Results 24 Hours: Test 09/06/17 05:29 Hematocrit 37.6 % Hemoglobin 12.1 g/dL Prothromb Time International Ratio 1.1 Prothrombin Time 11.2 SECONDS Assessment & Plan Assessment: POD#1 Left shoulder Rotator Cuff Repair, subacromial decompression. Plan: Medical Management - Patient is being weaned off oxygen hopeful to go home today if able to be weaned off oxygen. Outpatient PT Remain in sling for 6 weeks Inhouse Planning Pain Management: Percocet Discharge Planning Discharge Planning: home with oppt
[2017-09-06] MEDS: WARFARIN SOD 5 MG TAB PO SCH (16:25)
--- NOTE | 2017-09-06 19:26 | Progress Note ---
Internal Med Progress Note Date of Service: Sep 06, 2017. Provider Documentation: SUBJECTIVE: SITTING ON THE CHAIR COMFORTABLY AFEBRILE DENIES CHEST PAIN OR SOB WANTS TO GO HOME OBJECTIVE: Vital Signs-as noted below Exam: General-alert and oriented. not in distress ENT-Normal hearing Neck-no neck masses Lungs-Cta b/l no wheezing or crackles Heart-S1 and S2 heard regular No murmurs Abdomen-Soft Bowel sounds present Non tender No distension Extremities- left shoulder in sling Neuro- alert and awake moves extremities Lab data as noted below. ASSESSMENT & PLAN: This is an 82yo M with a PMH of COPD, HTN, HLD, JESSICA (on cpap), CAD (s/p stenting in 2012), h/o TIA and OA who is POD#0 s/p left TSA with rotator cuff repair. S/p Left TSA with rotator cuff: POD#[address] Lopez management as per ortho Shortness of breath: 2/2 underlying moderate COPD, possible fluid overload biju-operatively No known CHF received a dose of lasix dong fine today home inhalers nebs prn s/p two step and requiring 2lts oxygen while ambulating HTN: on lisinopril, imdur, metoprolol in AM with parameters HLD: on statin JESSICA (on cpap): Using own cpap CAD (s/p stenting in 2012): Stable.On aspirin, imdur, metoprolol H/o TIA: Per surgery, please follow up with coumadin clinic 3-4 days after to reassess INR levels To Bridge with lovenox for 2 days while re-initiating warfarin at 5mg daily DVT Ppx: Lovenox SQ, warfarin reinitiated Code status: FULL PCP: [facility] ([facility]) Dispo: Per ortho Vital Signs: Date Time Temp Pulse Resp B/P (MAP) Pulse Ox O2 Delivery O2 Flow Rate FiO2 09/06/17 15:16 36.7 87 18 121/78 (92) 94 Room Air 09/06/17 12:07 36.8 80 18 153/80 (104) 95 Nasal Cannula 2.0 09/06/17 07:34 36.6 89 19 143/83 (103) 96 Nasal Cannula 2.0 09/06/17 07:25 Nasal Cannula 2.0 09/06/17 06:02 96 Nasal Cannula 2.0 09/06/17 06:00 87 Room Air 09/06/17 03:29 37.2 87 16 137/79 (98) 96 CPAP 09/06/17 00:30 80 09/06/17 00:30 CPAP 09/05/17 22:52 37.5 105 18 124/73 (90) 94 CPAP 09/05/17 21:44 Nasal Cannula 2.0 94 BiPAP 09/05/17 21:20 86 20 90 Nasal Cannula 3.0 09/05/17 19:37 36.8 86 16 126/58 (80) 95 Nasal Cannula 3.0 Lab Results: Results Past 24 Hours Test 09/06/17 05:29 Range/Units White Blood Count 8.97 4.8-10.8 K/uL Red Blood Count 3.97 4.7-6.1 M/uL Hemoglobin 12.1 14.0-18.0 g/dL Hematocrit 37.6 42-52 % Mean Corpuscular Volume 94.7 80-100 fL Mean Corpuscular Hemoglobin 30.5 25-34 pg Mean Corpuscular Hemoglobin Concent 32.2 32-36 g/dl RDW Standard Deviation 48.9 36.4-46.3 fL RDW Coefficient of Variation 14.1 11.5-14.5 % Platelet Count 147 130-400 K/uL Mean Platelet Volume 9.6 7.4-10.4 fL Prothrombin Time 11.2 9.0-12.0 SECONDS Prothromb Time International Ratio 1.1 0.9-1.1 Sodium Level 137 136-145 mmol/L Potassium Level 4.0 3.5-5.1 mmol/L Chloride Level 103 98-107 mmol/L Carbon Dioxide Level 28 21-32 mmol/L Anion Gap 6.0 3-11 mmol/L Blood Urea Nitrogen 14 7-18 mg/dl Creatinine 1.09 0.60-1.40 mg/dl Est Creatinine Clear Calc Drug Dose 49.7 ml/min Estimated GFR () 72.4 Estimated GFR (Non- 62.4 BUN/Creatinine Ratio 13.2 10-20 Random Glucose 113 70-99 mg/dl Calcium Level 8.0 8.5-10.1 mg/dl Magnesium Level 1.8 1.8-2.4 mg/dl
[2017-09-06] MEDS: SENNA 8.6 MG TAB PO SCH (21:00)
[2017-09-06] MEDS: ENOXAPARIN 40 MG/0.4 ML SYR SC SCH (21:17)
[2017-09-07] MEDS: OXYCODONE/ACETAMINOPHEN 5-325 TAB PO PRN ×3 (00:53→13:54)
[2017-09-07 06:20] LABS: INR 1.2 (0.9-1.1); PROTHROMBIN TIME (PATIENT) 12.3 SECONDS (9.0-12.0)
[2017-09-07 07:35] VITALS: BP 161/88; PULSE 85; TEMP 36.8; O2SAT 96
[2017-09-07] MEDS: FERROUS GLUCONATE 324 MG TAB PO SCH ×2 (08:28→12:36)
[2017-09-07] MEDS: MULTIVITAMIN TAB PO SCH (08:28)
[2017-09-07] MEDS: PANTOprazole SOD 40 MG TAB PO SCH (08:28)
--- NOTE | 2017-09-07 08:49 | Orthopedic Progress Note ---
Orthopedic Progress Note Date of Service Sep 07, 2017. Subjective Post OP Day: 2 Reports: feeling well, Denies: complaints Additional Notes: Discussed that he would need a 2 step test to see if he needs home O2. Otherwise, he feels fine. Hoping to go home today. Having some numbness in his 5th finger which comes and goes. Discussed that it's likely due to his sling and that he can loosen the sling to extend his elbow/wrist on occasion. Objective dressing C/D/I, A&O x3, CMS intact Date Time Temp Pulse Resp B/P (MAP) Pulse Ox O2 Delivery O2 Flow Rate FiO2 09/07/17 07:35 36.8 85 16 161/88 (112) 96 Nasal Cannula 1.5 09/06/17 23:15 BiPAP 09/06/17 22:50 37.4 96 16 145/74 (97) 96 BiPAP 2.0 09/06/17 16:00 Room Air Nasal Cannula 09/06/17 15:16 36.7 87 18 121/78 (92) 94 Room Air 09/06/17 12:07 36.8 80 18 153/80 (104) 95 Nasal Cannula 2.0 Laboratory Results 24 Hours: Test 09/07/17 05:50 Prothromb Time International Ratio 1.2 Prothrombin Time 12.3 SECONDS Assessment & Plan Assessment: POD#2 Left shoulder Rotator Cuff Repair, subacromial decompression. Plan: Medical Management - Patient awaiting 2 step test to see if he needs home O2 Outpatient PT Remain in sling for 6 weeks Plan for dc today when ok with Med Service Inhouse Planning Pain Management: Percocet DVT Prophylaxis: Coumadin, Lovenox Discharge Planning Discharge Planning: home with oppt Pain Management: Percocet DVT Prophylaxis: Coumadin Therapy: Physical Therapy
[2017-09-07] MEDS: DOCUSATE SODIUM 100 MG CAP PO SCH (09:13)
[2017-09-07] MEDS ORDERED: OXGN (09:35)
[2017-09-07 10:08] VITALS: BP 123/73
[2017-09-07 11:24] VITALS: O2SAT 97
[2017-09-07] MEDS: WARFARIN SOD 5 MG TAB PO SCH (13:54)
[2017-09-07 13:59] VITALS: BP 123/73; PULSE 85; TEMP 36.8; O2SAT 97
--- NOTE | 2017-09-17 16:40 | Discharge Summary ---
Orthopedic Discharge Summary Admission Date/Reason Sep 05, 2017 at 18:19 Impingement Syndrome Of Left Shoulder, Unspecified. Discharge Date/Disposition Sep 05, 2017 Home Diagnosis Principal Diagnosis: S/P Left shoulder RCR, SAD, DCE Medication Reconciliation as per discharge instructions Admission Physical Exam As per Admitting History & Physical. Hospital Course POD#1 patient was on tele floor due to his oxygen saturations going down. He was told that we would have to try and wean him off the O2. He was unable to get off of O2 POD#1. POD#2 patient was doing well with no complaints. He will be held off of PT for 2 weeks. He will follow up with pulmonology for further evaluation of his O2 sats. He was discharged POD#2 Discharge Instructions Please refer to the electronic Patient Visit Report (Discharge Instructions) for additional information.
== END 2017-09-07 14:33 | disposition home or self-care (01) | DRG 502 ==
LOC: C.ACU 08:19 → C.3E 16:36 → ENRESERV 17:11 → OBSVTOIN 18:19
PROVIDERS: ADMIT Orthopaedic Surgery; ATTEND Orthopaedic Surgery
PROC: 0LN24ZZ Release Left Shoulder Tendon, Percutaneous Endoscopic Approach (ICD-10-PCS; principal; 2017-09-05 10:30)
PROC: 0RNK4ZZ Release Left Shoulder Joint, Percutaneous Endoscopic Approach (ICD-10-PCS; principal; 2017-09-05 10:30)
PROC: 0LM24ZZ Reattachment of Left Shoulder Tendon, Percutaneous Endoscopic Approach (ICD-10-PCS; principal; 2017-09-05 10:30)
DX: M75.42 Impingement syndrome of left shoulder (principal); M75.102 Unspecified rotator cuff tear or rupture of left shoulder, not specified as traumatic; R06.02 Shortness of breath; E87.70 Fluid overload, unspecified; J44.9 Chronic obstructive pulmonary disease, unspecified; I25.10 Atherosclerotic heart disease of native coronary artery without angina pectoris; I65.1 Occlusion and stenosis of basilar artery; I10 Essential (primary) hypertension; E78.00 Pure hypercholesterolemia, unspecified; E78.5 Hyperlipidemia, unspecified; M19.90 Unspecified osteoarthritis, unspecified site; G47.33 Obstructive sleep apnea (adult) (pediatric); Z99.89 Dependence on other enabling machines and devices; Z86.73 Personal history of transient ischemic attack (TIA), and cerebral infarction without residual deficits; Z95.5 Presence of coronary angioplasty implant and graft; Z79.01 Long term (current) use of anticoagulants; Z79.891 Long term (current) use of opiate analgesic; Z79.82 Long term (current) use of aspirin; Z79.899 Other long term (current) drug therapy

== ENCOUNTER 2017-12-03 15:32 | Inpatient (IN) | payer OTHER ==
[~2017-12-03] VITALS: Ht 172.7 cm; Wt 65.9 kg
[2017-12-03 15:09] VITALS: BP 115/64; PULSE 87; TEMP 37.1; O2SAT 93
[~2017-12-03 15:32] MED LIST changes: -ATROPINE SULFATE 0.1 MG/ML 5ML SYR IV PRN; -CEFAZOLIN 1000MG IV PUSH 5 ML IV SCH; +ENOX40IN SQ; -EpHEDrine SULFATE INJ 50 MG/ML AMP IV PRN; -FENTANYL CITRATE INJ 50 MCG/1 ML 2 ML VIAL IV PRN; -LACTATED RINGER'S 1000ML 1,000 ML IV SCH; -ONDANSETRON INJ 2 MG/ML 2 ML VIAL IV PRN; +OXGN; +OXYC-57 PO; +RANI150T85 PO; -ROPIVACAINE 0.5% 5 MG/ML 30 ML VIAL ONE; -TRAM-10 PO; -ZNTT/150 PO
[2017-12-03 16:06] VITALS: BMI 22.1
[2017-12-03] MEDS ORDERED: ONDANSETRON INJ 2 MG/ML 2 ML VIAL IV PRN (17:00)
[2017-12-03] MEDS ORDERED: ALUMINUM/MAGNESIUM/SIMETH (MAALOX MAX) 30 ML UDC PO PRN (17:00)
[2017-12-03] MEDS ORDERED: POLYETHYLENE (MIRALAX) 17 GM PACK PO PRN (17:00)
[2017-12-03] MEDS ORDERED: ACETAMINOPHEN 325 MG TAB PO PRN (17:00)
--- NOTE | 2017-12-03 17:17 | History and Physical ---
History & Physical Date & Time of Service: Dec 03, 2017 at 17:02 Chief Complaint: Gross Hematuria, Shortness Of Breath Primary Care Physician: Surjit Knowles M.D. History of Present Illness Source: patient, family (Daughter) Mr. 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 Upon initial presentation to [facility], patient had multiple complaints. On 11/24 he was seen in the emergency department for lower back pain. However he was discharged home and followed up on 11/25 with his PCP however collapsed in the parking lot due to this back pain. He represented to the emergency department at [facility], and was found to have herniated disks and possibly old compression fracture at L1. During his admission there, he is reporting improvement in his back pain with Lidoderm patch and was being seen by PT/OT. He also presented with abdominal pain and was found to have significant stool burden and underwent multiple regimens to move his bowels which was successful. Prior to this regimen, patient did not move his bowels for approximately 8 days. He underwent colonoscopy on 12/02 with only evidence of diverticulosis and no other abnormalities per patient's daughter. Daughter does report that his abdomen does appear more distended since the colonoscopy. Patient also presented with complaints of shortness of breath and his daughter states on 11/30 he had a fever and was severely short of breath and looked very ill. She states he looks so ill she called family members and see him as they were not sure of his outcome. Patient carries a diagnosis of COPD and is maintained on Spiriva and a rescue inhaler. He does not have a nebulizer machine at home. He just recently got established with a auto claims adjuster, Dr. Traylor, and they are planning on PFTs as an outpatient. Patient complains of a productive cough of thick yellow sputum and reporting shortness of breath mostly with exertion. He has been maintained on chronic O2 at 2 L since his shoulder replacement in August 2017. While admitted at [facility], he reports the DuoNeb treatments seem to help his symptoms. Upon review of records obtained and discussion with patient's daughter, it does not appear he was treated with any IV steroids. Daughter claims they did not want to utilize these possibly due to his Coumadin. Patient has also noted chronic urinary symptoms such as urinary hesitancy and weakened urinary stream. He has never been evaluated by an urologist. Due to urinary retention during admission , a Garcias catheter was placed which the daughter states when in easily. However since placement, he has had intermittent hematuria. Likely this is traumatic hematuria from placement given evidence of prostate enlargement on imaging, chronic Coumadin, and aspirin therapy. Did not directly see a UA in the paperwork sent over. Patient denies any hematuria prior to this Garcias placement. ZOE Fischer was concerned for ongoing urinary retention and thought it would be prudent for urology consultation prior to be discharged home. Currently, patient denies shortness of breath at rest but on examination has tight airways and expiratory wheeze. His abdomen is soft however distended with high-pitched bowel sounds in all 4 quadrants. He reports that he is currently passing gas. He is reporting right groin pain with a history of right inguinal hernia and repair. No herniation is palpable at this time. Will obtain CXR and KUB to further assess patient. Past Medical/Surgical History Medical Problems: (1) COPD (chronic obstructive pulmonary disease) (2) COPD exacerbation (3) H/O TIA (transient ischemic attack) and stroke (4) HLD (hyperlipidemia) (5) HTN (hypertension) (6) JESSICA on CPAP (7) Presence of stent in coronary artery in patient with coronary artery disease Surgical Problems: (1) Status post reverse total arthroplasty of left shoulder Family History Kidney disease Pancreatic Cancer Venous Thrombosis Social History Smoking Status: Former Smoker Smokeless Tobacco Use: No Alcohol Use: none Drug Use: none Marital Status: Housing status: lives with significant other Occupational Status: retired Allergies Coded Allergies: No Known Allergies (Unverified , 09/05/17) Home Medications Scheduled Acetaminophen (Tylenol Arthritis Ext Rel), 650 MG PO BID Albuterol Hfa (Ventolin Hfa), 2-4 PUFFS INH Q6H Aspirin (Aspirin Ec), 81 MG PO QAM Calcium (Calcium), 1 TAB PO QAM Home O2 Therapy (Oxygen), 2 LITERS NA PRN Isosorbide Mononitrate Ext Rel (Imdur Ext Rel), 1 TAB PO QAM Latanoprost (Xalatan 0.005% Oph Caroline), 1 DROPS OP HS Lisinopril (Zestril), 2.5 MG PO QAM Metoprolol Tartrate (Lopressor) (Lopressor), 12.5 MG PO HS Ocuvite Preservision (Ocuvite Preservision), 1 TAB PO QAM Ranitidine (Zantac), 1 TAB PO BID Simvastatin (Simvastatin), 1 TAB PO HS Tiotropium [place] (Spiriva Handihaler), 1 CAP INH QAM Warfarin Sodium (Coumadin), 5 MG PO 5XWK Warfarin Sodium (Coumadin), 2.5 MG PO 2XWK Scheduled PRN Oxycodone/Acetaminophen 5MG/325MG (Percocet 5MG/325MG), 1-2 TABLETS PO Q4-6H PRN for Pain Trolamine Salicylate (Aspercreme), Unknown Dose TOP UD PRN for Pain Review of Systems Constitutional: + fever (On 11/30 - resolved) ENT: + problem reported (dry mouth), No nasal symptoms, No sore throat, No trouble swallowing Respiratory: + cough, + sputum (thick yellow secretions), + wheezing, + dyspnea on exertion, No dyspnea at rest, No hemoptysis Cardiovascular: No chest pain, No orthopnea Abdomen: + pain (R groin), + constipation (RESOLVED), No nausea, No vomiting, No diarrhea, No GI bleeding Musculoskeletal: + joint pain (low back pain - improving), No swelling, No calf pain Genitourinary - Male: + hematuria, + urinary hesitancy, + urinary retention, No dysuria Neurologic: + balance problems (improving), No numbness/tingling Hematologic / Lymphatic: No abnormal bleeding/bruising, No clotting problems Integumentary: No rash Physical Exam Vital Signs Date Time Temp Pulse Resp B/P (MAP) Pulse Ox O2 Delivery O2 Flow Rate FiO2 12/03/17 15:09 37.1 87 18 115/64 (81) 93 Nasal Cannula 3.0 General Appearance: WD/WN, no apparent distress Head: normocephalic, atraumatic Eyes: PERRL, EOMI, sclerae normal, + pertinent finding (mildly enlarged L pupil in comparison to R however good contraction/dilation with testing) ENT: hearing grossly normal, pharynx normal Neck: supple, no JVD, trachea midline, + adenopathy present (R anterior cervical chain) Respiratory/Chest: no respiratory distress, no accessory muscle use, + pertinent finding (poor inspiratory airflow with exp. wheeze diffusely) Cardiovascular: regular rate, rhythm, no gallop, no murmur Abdomen/GI: non tender, soft, + abnormal bowel sounds (hyperactive - high pitched), + distended Genitourinary - Male: + pertinent finding (Tenderness in R groin mostly in movement - no palpable hernia/bulge ) Extremities/Musculoskelatal: no calf tenderness, no pedal edema Neurologic/Psych: alert, oriented x 3 Skin: normal color, warm/dry Diagnostics Laboratory Results Results Past 24 Hours Test 12/03/17 16:46 Range/Units Impression Assessment and Plan Mr. 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 Acute on Chronic Hypoxic Respiratory Failure 2/2 COPD Exacerbation: -Patiently clinically appears to be in an acute COPD exacerbation who feels that his breathing is slightly better but way far from baseline. Upon review of medical records and discussion with patient's daughter [facility] did not initiate any forms of steroid treatments during the admission -Recently established with outpatient auto claims adjuster who plans on PFTs - Dr. Traylor -Obtain CXR for further evaluation -Placed on Levaquin 500 mg IV daily and methylprednisolone 60 mg IV Q8H; Spiriva 1 puff daily Hematuria with Urinary Retention/Enlarged Prostate: Likely Traumatic Hematuria with Anti-coagulation -Patient has never seen a urologist, but does report some chronic urinary issues such as hesitancy and dribbling -Garcias catheter was placed at [facility] and suspect the hematuria is likely from trauma while on Coumadin and aspirin therapy however will obtain a UA for further analysis -Could consider initiation of Flomax this patient reports he has not been on this in the past -We will consult urology-appreciate their assistance-possible recommendations for TOV an outpatient establishment Abdominal Distention: Possible Ileus? -Patient reporting going 8 days without bowel movement but successfully moved his bowels with a bowel regimen and then underwent colon prep for colonoscopy that was completed on 12/02 however feels that his abdomen is becoming more distended however is not having any pain or tenderness to palpation; possibly some element of gaseous distention given colonoscopy yesterday -Obtain KUB to evaluate for any signs of ileus-we will place NPO except meds/ sips/chips until this can be evaluated -patient currently has high-pitched bowel sounds Lumbar Back Pain/Herniated Discs with Ambulatory Dysfunction: -Lidoderm patch daily and Percocet PRN; obtain PT/OT evaluations TIA with Basilar Artery Stenosis/Malformation on Coumadin: -Patient is adamant that his Coumadin is for his previous TIA and this issue with his basilar artery -discussed with him the possibility of atrial fibrillation however patient has not heard this term but did find this intermittently placed in his medical record. Reviewed his research psychologist's preoperative note and did not see mention of atrial fibrillation however his PCP did mention this -Hold Coumadin at this time pending laboratories to assess for any significant anemia and assessment for hematuria HTN/HLD/CAD S/P PCI in LAD: Follows with Dr. Yoon -Hold ASA 81 mg daily to further evaluate hematuria -could consider reinstitution tomorrow -Lisinopril 2.5 mg daily, Metoprolol 12.5 mg daily, and Imdur 30 mg daily; Simvastatin 10 mg daily JESSICA on CPAP: -May use own CPAP DVT Prophylaxis: SCDs; Hold Coumadin until we can assess for hematuria - likely can be resumed soon Disposition: -PT/OT evaluations - lives at home with his PA Attending note Elida DUBOIS I did independently see and evaluate this pt, discussed plan of care and orders This pt is a transfer from [facility] with concerns for SOB and hematuria , he has been having issues with constipation and appears to have decompensating COPD exacerbation , the Hematuria is slight and maybe from anticoagulation and garcias cath placement. Intake abd x ray shows ileus vital are slightly high in regard to blood pressure readings abd is with tachypnea and wheezing high pitched bowel sounds but soft abdomen will treat COPD, steroids, and culture urine, will have cathartic agents and evaluate ileus progression clinically Resuscitation Status VTE Prophylaxis Will order VTE Prophylaxis: Yes Reason for no VTE drug order: Contraindicated
[2017-12-03 17:42] LABS: BASO % 0.5 %; BASO ABS # 0.03 K/uL (0-0.2); EOS % 2.9 %; EOS ABS # 0.19 K/uL (0-0.5); HEMATOCRIT 36.4 % (42-52); HEMOGLOBIN 11.7 g/dL (14.0-18.0); IG# 0.02 K/uL (0.00-0.02); INR 1.2 (0.9-1.1); LYMPH % 19.6 %; LYMPH ABS # 1.27 K/uL (1.2-3.4); MEAN CELL VOLUME 94.1 fL (80-100); MEAN CORPUSCULAR HEMOGLOBIN 30.2 pg (25-34); MEAN CORPUSCULAR HGB CONC 32.1 g/dl (32-36); MEAN PLATELET VOLUME 9.4 fL (7.4-10.4); NEUT % 59.7 %; NEUT ABS # 3.86 K/uL (1.4-6.5); PLATELET COUNT 143 K/uL (130-400); RED CELL DISTRIBUTION WIDTH CV 13.6 % (11.5-14.5); RED CELL DISTRIBUTION WIDTH SD 46.8 fL (36.4-46.3); WHITE BLOOD COUNT 6.47 K/uL (4.8-10.8)
[2017-12-03 17:52] LABS: ALBUMIN 2.8 gm/dl (3.4-5.0); CALCIUM 8.1 mg/dl (8.5-10.1); CREATININE 1.02 mg/dl (0.60-1.40); POTASSIUM 4.2 mmol/L (3.5-5.1)
[2017-12-03 17:55] LABS: TOTAL PROTEIN 6.8 gm/dl (6.4-8.2)
--- NOTE | 2017-12-03 19:07 | DIAGNOSTIC IMAGING REPORT ---
KUB HISTORY: Generalized abdominal pain and bloating. COMPARISON: Outside hospital abdominal series 11/27/2017. FINDINGS: Mildly dilated gas-filled loops of large and small bowel. This favors an ileus. There is also gas seen within the rectum. No definite transition point to suggest an obstruction. No renal calculi. No ureteral calculi. No pneumoperitoneum or pneumatosis. Suture material within the right groin. Vascular calcifications are noted. IMPRESSION: Mildly dilated gas-filled loops of large and small bowel. This likely represents an ileus. Electronically signed by: Florencio Obrien M.D. 12/03/2017 7:06 PM Dictated Date/Time: 12/03/2017 7:02 PM
[2017-12-03] MEDS: METHYLPREDNISOLONE IV 60 MG in SYRINGE 0 ML IV SCH (19:13)
[2017-12-03] MEDS: MAGNESIUM HYDROXIDE SUSP 30 ML UDC PO PRN (19:22)
--- NOTE | 2017-12-03 19:22 | DIAGNOSTIC IMAGING REPORT ---
CHEST 2 VIEWS ROUTINE HISTORY: Dyspnea COMPARISON: Chest 11/28/2017. FINDINGS: The lungs are hyperexpanded with apical predominant emphysematous changes. Interstitial thickening at the lung bases which may be due to vascular crowding from the emphysema. No new focal lung consolidations to suggest pneumonia. No evidence for pulmonary edema. The heart is normal in size. Old mild compression deformities seen within the thoracic and lumbar spine. IMPRESSION: No significant change compared to the prior study. No acute process. Emphysema. Electronically signed by: Florencio Obrien M.D. 12/03/2017 7:21 PM Dictated Date/Time: 12/03/2017 7:19 PM
[2017-12-03] MEDS: LEVOFLOXACIN / D5W 500 MG in PREMIXED IN D5W 100 ML IV SCH (19:23)
[2017-12-03] MEDS: OXYCODONE/ACETAMINOPHEN 5-325 TAB PO PRN (19:23)
[2017-12-03 20:36] VITALS: BP 120/72; PULSE 85
[2017-12-03] MEDS: LATANOPROST 0.005% OP SOLN 2.5 ML BTL OP SCH (20:41)
[2017-12-03] MEDS: RANITIDINE HCL 150 MG TAB PO SCH (20:42)
[2017-12-03] MEDS: METOPROLOL TARTRATE 25 MG TAB PO SCH (20:42)
[2017-12-03] MEDS: SIMVASTATIN 10 MG TAB PO SCH (20:43)
[2017-12-03 22:20] VITALS: BP 119/69; PULSE 79; TEMP 37; O2SAT 95
[2017-12-04] MEDS: SODIUM CHLORIDE 0.9% 1000ML 1,000 ML IV SCH ×2 (01:00→16:24)
[2017-12-04] MEDS: METHYLPREDNISOLONE IV 60 MG in SYRINGE 0 ML IV SCH ×3 (01:00→18:00)
[2017-12-04] MEDS: OXYCODONE/ACETAMINOPHEN 5-325 TAB PO PRN ×2 (02:55→16:22)
[2017-12-04 06:01] LABS: HEMATOCRIT 38.7 % (42-52); HEMOGLOBIN 12.6 g/dL (14.0-18.0); MEAN CELL VOLUME 94.6 fL (80-100); MEAN CORPUSCULAR HEMOGLOBIN 30.8 pg (25-34); MEAN CORPUSCULAR HGB CONC 32.6 g/dl (32-36); PLATELET COUNT 173 K/uL (130-400); RED CELL DISTRIBUTION WIDTH CV 13.6 % (11.5-14.5); RED CELL DISTRIBUTION WIDTH SD 47.1 fL (36.4-46.3); WHITE BLOOD COUNT 5.19 K/uL (4.8-10.8)
[2017-12-04 06:44] LABS: CALCIUM 8.7 mg/dl (8.5-10.1); CREATININE 1.04 mg/dl (0.60-1.40)
[2017-12-04 07:30] VITALS: BP 128/72; PULSE 72; TEMP 36.3; O2SAT 94
[2017-12-04 08:04] VITALS: O2SAT 94
[2017-12-04] MEDS: TIOTROPIUM BROMIDE 5 PUFF/90 MCG INH INH SCH (09:04)
[2017-12-04] MEDS: ISOSORBIDE MONONITRATE 30 MG TABCR PO SCH (09:06)
[2017-12-04] MEDS: CEROVITE ADV FORMULA TAB PO SCH (09:07)
[2017-12-04] MEDS: RANITIDINE HCL 150 MG TAB PO SCH ×2 (09:07→20:32)
[2017-12-04] MEDS: LISINOPRIL 5 MG TAB PO SCH (09:07)
[2017-12-04] MEDS: LIDODERM (LIDOCAINE) PATCH 5% TD SCH (09:09)
--- NOTE | 2017-12-04 09:14 | Urology Consultation ---
History General Date of Service: Dec 04, 2017. Chief Complaint: urinary retention, gross hematuria Primary Care Physician: uSrjit Knowles M.D. Pt seen a urologist before?: No History of Present Illness 82 yo male admitted to [facility] from [facility] for COPD exacerbation. consulted for gross hematuria and UR. The pt reports a hx of BPH and difficulty voiding prior to admission at [facility]. He has never seen a urologist in the past, and has never had any treatment for this issue. Garcias catheter was placed at [facility] for UR. He reports developing some gross hematuria after placement. Pt denies difficult placement. Garcias currently draining clear, yellow urine. No evidence for renal mass, stone, or hydro on CT from [facility]. UC&S pending. He has a hx of smoking. Quit 15-17 years ago. Pt also noted to have some issues with bowels prior to admission. Colonoscopy 2 days ago at [facility] was noted to be normal, but KUB on admission currently showing an ileus. Imaging Imaging: CT (at [facility]), KUB (showing ileus) Laboratory Last 24 Hours Test 12/03/17 17:15 12/04/17 05:20 White Blood Count 6.47 K/uL 5.19 K/uL Red Blood Count 3.87 M/uL 4.09 M/uL Hemoglobin 11.7 g/dL 12.6 g/dL Hematocrit 36.4 % 38.7 % Mean Corpuscular Volume 94.1 fL 94.6 fL Mean Corpuscular Hemoglobin 30.2 pg 30.8 pg Mean Corpuscular Hemoglobin Concent 32.1 g/dl 32.6 g/dl Platelet Count 143 K/uL 173 K/uL Mean Platelet Volume 9.4 fL 10.0 fL Neutrophils (%) (Auto) 59.7 % Lymphocytes (%) (Auto) 19.6 % Monocytes (%) (Auto) 17.0 % Eosinophils (%) (Auto) 2.9 % Basophils (%) (Auto) 0.5 % Neutrophils # (Auto) 3.86 K/uL Lymphocytes # (Auto) 1.27 K/uL Monocytes # (Auto) 1.10 K/uL Eosinophils # (Auto) 0.19 K/uL Basophils # (Auto) 0.03 K/uL RDW Standard Deviation 46.8 fL 47.1 fL RDW Coefficient of Variation 13.6 % 13.6 % Immature Granulocyte % (Auto) 0.3 % Immature Granulocyte # (Auto) 0.02 K/uL Prothrombin Time 12.7 SECONDS Prothromb Time International Ratio 1.2 Urine Color ORANGE Urine Appearance CLEAR Urine pH 6.5 Urine Specific [place] 1.020 Urine Protein 1+ Urine Glucose (UA) NEG Urine Ketones NEG Urine Occult Blood 3+ Urine Nitrite NEG Urine Bilirubin NEG Urine Urobilinogen NEG Urine Leukocyte Esterase SMALL Urine WBC (Auto) 10-30 /hpf Urine RBC (Auto) >30 /hpf Urine Hyaline Casts (Auto) 1-5 /lpf Urine Epithelial Cells (Auto) 10-20 /lpf Urine Bacteria (Auto) NEG Sodium Level 134 mmol/L 136 mmol/L Potassium Level 4.2 mmol/L 5.0 mmol/L Chloride Level 100 mmol/L 101 mmol/L Carbon Dioxide Level 29 mmol/L 30 mmol/L Anion Gap 5.0 mmol/L 5.0 mmol/L Blood Urea Nitrogen 18 mg/dl 21 mg/dl Creatinine 1.02 mg/dl 1.04 mg/dl Est Creatinine Clear Calc Drug Dose 51.1 ml/min 50.2 ml/min Estimated GFR () 78.4 76.6 Estimated GFR (Non- 67.7 66.1 BUN/Creatinine Ratio 17.9 20.6 Random Glucose 115 mg/dl 144 mg/dl Calcium Level 8.1 mg/dl 8.7 mg/dl Total Bilirubin 0.5 mg/dl Aspartate Amino Transf (AST/SGOT) 31 U/L Alanine Aminotransferase (ALT/SGPT) 29 U/L Alkaline Phosphatase 67 U/L Total Protein 6.8 gm/dl Albumin 2.8 gm/dl Globulin 4.0 gm/dl Albumin/Globulin Ratio 0.7 Magnesium Level 2.5 mg/dl Past History A Fib, BPH, COPD, coronary artery disease, CVA/TIA/stroke, GERD, high cholesterol, hypertension, other (JESSICA ) Past Surgical History: angioplasty with stent (coronary artery), orthopedic surgery (reverse total arthroplasty of left shoulder) Family History Kidney disease Pancreatic Cancer Venous Thrombosis Social History Hx Tobacco Use In Past Year?: No Smoking: other (former smoker- quit 15-17 years ago ) Alcohol: never Drug use: none Marital status: Housing status: lives with significant other Occupation status: retired Allergies Coded Allergies: No Known Allergies (Unverified , 09/05/17) Medications Home Medications: Home Meds and Scripts Medications Dose Route/Sig Max Daily Dose Days Date Category Dose Instructions Oxygen Gas 2 Liters NA PRN 09/07/17 Rx OXYGEN 2LTS VIA NASAL CANULA CONTINOUS WHILE AMBULATING Percocet 5MG/325MG (Oxycodone/Acetaminophen) Tab 1-2 Tablets PO Q4-6H PRN 09/05/17 Rx Ventolin Hfa (Albuterol) 200 Puffs/12788 Mcg Aers 2-4 Puffs INH Q6H 08/22/17 Reported Aspercreme (Trolamine Salicylate) Unknown Strength Lot Unknown Dose TOP UD PRN 08/22/17 Reported Xalatan 0.005% Oph Caroline (Latanoprost) 0.005 % Caroline 1 Drops OP HS 08/22/17 Reported Lopressor (Metoprolol Tartrate) 25 Mg Tab 12.5 Mg PO HS 08/22/17 Reported Simvastatin 10 Mg Tab 1 Tab PO HS 08/22/17 Reported Coumadin (Warfarin Sodium) 2 Mg Tab 2.5 Mg PO 2XWK 08/22/17 Reported WED AND SAT - TAKES IN PM PT RECEIVED INSTRUCTIONS FOR PREOP LOVENOX BY PCP Coumadin (Warfarin Sodium) 5 Mg Tab 5 Mg PO 5XWK 08/22/17 Reported SUN, MON, TUE, THUR AND FRI - TAKES IN PM HAS PRE OP INSTRUCTIONS FOR LOVENOX BY FAMILY DOC Aspirin Ec (Aspirin) 81 Mg Tab 81 Mg PO QAM 08/22/17 Reported Spiriva Handihaler (Tiotropium [place]) 30 Puff/540 Mcg Aerp 1 Cap INH QAM 08/22/17 Reported Zantac (Ranitidine HCl) 150 Mg Tab 1 Tab PO BID 30 08/22/17 Reported Imdur Ext Rel (Isosorbide Mononitrate) 30 Mg Tabcr 1 Tab PO QAM 08/22/17 Reported Zestril (Lisinopril) 5 Mg Tab 2.5 Mg PO QAM 08/22/17 Reported Ocuvite Preservision (Multivitamins/Minerals) 1 Tab Tab 1 Tab PO QAM 08/22/17 Reported Calcium 600 Mg Tab 1 Tab PO QAM 08/22/17 Reported Tylenol Arthritis Ext Rel (Acetaminophen) 650 Mg Cplt 650 Mg PO BID 08/22/17 Reported Inpatient Medications: Current Inpatient Medications Medications (Trade) Dose Ordered Sig/Fede Route Start Time Stop Time Status Last Admin Dose Admin Acetaminophen (Tylenol Tab) 650 mg Q4H PRN PO 12/03/17 17:00 01/02/18 16:59 Al Hydrox/Mg Hydrox/Simethicone (Maalox Max Susp) 15 ml Q4H PRN PO 12/03/17 17:00 01/02/18 16:59 Magnesium Hydroxide (Milk Of Magnesia Susp) 30 ml Q6H PRN PO 12/03/17 17:00 01/02/18 16:59 12/03/17 19:22 30 ML Polyethylene (Miralax Powder Packet) 17 gm DAILY PRN PO 12/03/17 17:00 01/02/18 16:59 Ondansetron HCl (Zofran Inj) 4 mg Q6H PRN IV 12/03/17 17:00 01/02/18 16:59 Isosorbide Mononitrate (Imdur Ext Rel Tab) 30 mg QAM PO 12/04/17 09:00 01/03/18 08:59 Latanoprost (Xalatan Oph Soln) 1 drops HS OP 12/03/17 21:00 01/02/18 20:59 12/03/17 20:41 1 DROPS Lisinopril (Zestril Tab) 2.5 mg QAM PO 12/04/17 09:00 01/03/18 08:59 Metoprolol Tartrate (Lopressor Tab) 12.5 mg HS PO 12/03/17 21:00 01/02/18 20:59 12/03/17 20:42 12.5 MG Multivitamins/ Minerals (Multivitamin W/ Minerals Tab) 1 tab QAM PO 12/04/17 09:00 01/03/18 08:59 Oxycodone/ Acetaminophen (Percocet 5-325mg Tab) 1 tab Q6H PRN PO 12/03/17 17:00 12/17/17 16:59 12/04/17 02:55 1 TAB Ranitidine HCl (zANTac TAB) 150 mg BID PO 12/03/17 21:00 01/02/18 20:59 12/03/17 20:42 150 MG Simvastatin (Zocor Tab) 10 mg HS PO 12/03/17 21:00 01/02/18 20:59 12/03/17 20:43 10 MG Tiotropium [place] (Spiriva Handihaler Inhaler) 1 puff QAM INH 12/04/17 09:00 01/03/18 08:59 Lidocaine (Lidoderm Patch 5%) 1 patch QAM TD 12/04/17 09:00 01/03/18 08:59 Miscellaneous (Remove Lidoderm Patch) 1 ea DAILY@21 N/A 12/03/17 21:00 01/02/18 20:59 12/03/17 20:43 1 EA Methylprednisolone Sodium Succinate 60 mg/Syringe 0.96 ml @ 1.5 mls/min Q8H IV 12/03/17 17:30 01/02/18 17:29 12/04/17 01:00 1.5 MLS/MIN Levofloxacin 500 mg/Prmx 100 ml @ 100 mls/hr Q24H IV 12/03/17 19:00 12/10/17 18:59 12/03/17 19:23 100 MLS/HR Sodium Chloride 1,000 ml @ 60 mls/hr [id number] IV 12/04/17 00:30 01/03/18 00:29 12/04/17 01:00 60 MLS/HR Tamsulosin HCl (Flomax Cap) 0.4 mg HS PO 12/04/17 21:00 01/03/18 20:59 UNV Review of Systems Review of Systems Constitutional: No fever, No chills Eyes: No double vision Neurological: No dizzy Endocrine: No excessive thirst Gastrointestinal: No abdominal pain, No nausea, No vomiting Cardiovascular: No chest pain Respiratory: No shortness of breath Skin: No rash Musculoskeletal: + arthritis Male : No blood in urine Physical Exam Vital Signs: Vital Signs Past 12 Hours Date Time Temp Pulse Resp B/P (MAP) Pulse Ox O2 Delivery O2 Flow Rate FiO2 12/04/17 08:04 94 Nasal Cannula 3.0 12/04/17 07:35 Nasal Cannula 2.0 12/04/17 07:30 36.3 72 12 128/72 (90) 94 Nasal Cannula 3.0 12/04/17 00:00 CPAP 4.0 12/03/17 22:20 37.0 79 16 119/69 (86) 95 CPAP 4.0 Physical Exam: General Appearance: no apparent distress Eyes: bilateral eyes normal inspection ENT: hearing grossly normal Neck: no JVD Respiratory/Chest: no respiratory distress, no accessory muscle use Cardiovascular: no JVD Extremities: normal inspection Neurologic/Psychiatric: alert, normal mood/affect, oriented x 3 Skin: normal color Assessment & Plan Assessment & Plan A/P: BPH, UR, gross hematuria AFVSS. Hematuria resolved. UC&S pending. Will check a cytology. Will also check a PSA. Continue garcias catheter for now. Will start him on Flomax while inpatient and attempt a trial of void as an outpatient next week. Monitor for orthostasis while on Flomax. Will plan for outpatient cysto to complete evaluation of gross hematuria. Thanks for the consult. Will continue to follow along with primary service.
[2017-12-04 09:55] VITALS: Ht 172.7 cm; Wt 65.9 kg
--- NOTE | 2017-12-04 11:55 | Hospitalist Progress Note ---
Hospitalist Progress Note Date of Service Dec 04, 2017. (Marycruz Booker ., ALIVIAC) Subjective Pt evaluation today including: conversation w/ patient, physical exam, chart review, lab review, review of studies, review of inpatient medication list Voiding: garcias catheter in place (clear urine) Patient reports feeling well. He states that his breathing is improved and denies any shortness of breath currently. He is chronically on 2L NC continuous , and up to 3-4L with exertion. He is currently on 3L here. He does have a productive cough with yellow sputum. He denies wheezing. He denies any abdominal "pain", stating that he is just a little sensitive when touched. He does note bloating. He denies any nausea or vomiting. He states his hematuria is resolved. He is currently NPO. The patient denies fevers, chills, sweats, chest pain, palpitations, claudication, wheezing, shortness of breath, nausea, vomiting, abdominal pain, dysuria, hematuria, urinary retention, paralysis, weakness, numbness and tingling. Additional Comments: See HPI for pertinent positives and negatives. All other systems reviewed and negative. (Marycruz Booker ., PA-C) Objective Vital Signs Date Time Temp Pulse Resp B/P (MAP) Pulse Ox O2 Delivery O2 Flow Rate FiO2 12/04/17 08:04 94 Nasal Cannula 3.0 12/04/17 07:35 Nasal Cannula 2.0 12/04/17 07:30 36.3 72 12 128/72 (90) 94 Nasal Cannula 3.0 12/04/17 00:00 CPAP 4.0 12/03/17 22:20 37.0 79 16 119/69 (86) 95 CPAP 4.0 12/03/17 20:36 85 120/72 (88) 12/03/17 16:06 Nasal Cannula 3.0 12/03/17 15:41 Nasal Cannula 3.0 12/03/17 15:09 37.1 87 18 115/64 (81) 93 Nasal Cannula 3.0 (Marycruz Booker ., STACI-C) Physical Exam Notes: General appearance: Well-developed, well-nourished, no apparent distress Head: Normocephalic, atraumatic Eyes: Normal inspection, PERRL, EOMI ENT: Normal ENT inspection, hearing grossly normal, pharynx normal Neck: Supple, no JVD, trachea midline Respiratory/Chest: +Currently on 3L NC. Long expiratory wheezing. Normal breath sounds, no respiratory distress Cardiovascular: Regular rate & rhythm, no gallop, no murmur Abdomen/GI: +High pitched bowel sounds, mildly distended. RUQ mildly TTP. Extremities/Musculoskeletal: Normal inspection, no calf tenderness, no pedal edema Neurological/Psych: Alert, normal mood/affect, oriented x 3 Skin: Normal color, warm/dry, no rash (Marycruz Booker ., ALIVIAC) Laboratory Results Last 24 Hours Test 12/03/17 17:15 12/04/17 05:20 White Blood Count 6.47 K/uL 5.19 K/uL Red Blood Count 3.87 M/uL 4.09 M/uL Hemoglobin 11.7 g/dL 12.6 g/dL Hematocrit 36.4 % 38.7 % Mean Corpuscular Volume 94.1 fL 94.6 fL Mean Corpuscular Hemoglobin 30.2 pg 30.8 pg Mean Corpuscular Hemoglobin Concent 32.1 g/dl 32.6 g/dl Platelet Count 143 K/uL 173 K/uL Mean Platelet Volume 9.4 fL 10.0 fL Neutrophils (%) (Auto) 59.7 % Lymphocytes (%) (Auto) 19.6 % Monocytes (%) (Auto) 17.0 % Eosinophils (%) (Auto) 2.9 % Basophils (%) (Auto) 0.5 % Neutrophils # (Auto) 3.86 K/uL Lymphocytes # (Auto) 1.27 K/uL Monocytes # (Auto) 1.10 K/uL Eosinophils # (Auto) 0.19 K/uL Basophils # (Auto) 0.03 K/uL RDW Standard Deviation 46.8 fL 47.1 fL RDW Coefficient of Variation 13.6 % 13.6 % Immature Granulocyte % (Auto) 0.3 % Immature Granulocyte # (Auto) 0.02 K/uL Prothrombin Time 12.7 SECONDS Prothromb Time International Ratio 1.2 Urine Color ORANGE Urine Appearance CLEAR Urine pH 6.5 Urine Specific Broadbent 1.020 Urine Protein 1+ Urine Glucose (UA) NEG Urine Ketones NEG Urine Occult Blood 3+ Urine Nitrite NEG Urine Bilirubin NEG Urine Urobilinogen NEG Urine Leukocyte Esterase SMALL Urine WBC (Auto) 10-30 /hpf Urine RBC (Auto) >30 /hpf Urine Hyaline Casts (Auto) 1-5 /lpf Urine Epithelial Cells (Auto) 10-20 /lpf Urine Bacteria (Auto) NEG Sodium Level 134 mmol/L 136 mmol/L Potassium Level 4.2 mmol/L 5.0 mmol/L Chloride Level 100 mmol/L 101 mmol/L Carbon Dioxide Level 29 mmol/L 30 mmol/L Anion Gap 5.0 mmol/L 5.0 mmol/L Blood Urea Nitrogen 18 mg/dl 21 mg/dl Creatinine 1.02 mg/dl 1.04 mg/dl Est Creatinine Clear Calc Drug Dose 51.1 ml/min 50.2 ml/min Estimated GFR () 78.4 76.6 Estimated GFR (Non- 67.7 66.1 BUN/Creatinine Ratio 17.9 20.6 Random Glucose 115 mg/dl 144 mg/dl Calcium Level 8.1 mg/dl 8.7 mg/dl Total Bilirubin 0.5 mg/dl Aspartate Amino Transf (AST/SGOT) 31 U/L Alanine Aminotransferase (ALT/SGPT) 29 U/L Alkaline Phosphatase 67 U/L Total Protein 6.8 gm/dl Albumin 2.8 gm/dl Globulin 4.0 gm/dl Albumin/Globulin Ratio 0.7 Magnesium Level 2.5 mg/dl Prostate Specific Antigen 1.840 ng/ml (Marycruz Booker, ALIVIAC) Diagnostic Results Reviewed the following studies and agree with interpretation as follows: KUB HISTORY: Generalized abdominal pain and bloating. COMPARISON: Outside hospital abdominal series 11/27/2017. FINDINGS: Mildly dilated gas-filled loops of large and small bowel. This favors an ileus. There is also gas seen within the rectum. No definite transition point to suggest an obstruction. No renal calculi. No ureteral calculi. No pneumoperitoneum or pneumatosis. Suture material within the right groin. Vascular calcifications are noted. IMPRESSION: Mildly dilated gas-filled loops of large and small bowel. This likely represents an ileus. CHEST 2 VIEWS ROUTINE HISTORY: Dyspnea COMPARISON: Chest 11/28/2017. FINDINGS: The lungs are hyperexpanded with apical predominant emphysematous changes. Interstitial thickening at the lung bases which may be due to vascular crowding from the emphysema. No new focal lung consolidations to suggest pneumonia. No evidence for pulmonary edema. The heart is normal in size. Old mild compression deformities seen within the thoracic and lumbar spine. IMPRESSION: No significant change compared to the prior study. No acute process. Emphysema. 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 Acute on Chronic Hypoxic Respiratory Failure 2/2 COPD Exacerbation--stable -Pt reports breathing improved. On 2L NC continuous at home. O2 by protocol -Recently established with outpatient vp clinical who plans on PFTs - Dr. Traylor -CXR no acute disease -Continue Levaquin 500 mg IV daily and Solu-Medrol 60 mg IV Q8H -Spiriva 1 puff daily Hematuria with Urinary Retention/Enlarged Prostate--resolving -Likely traumatic cath insertion in setting of anticoagulation -Urology consulted, appreciate recs: Start Flomax. Will check urine cytology and PSA. Trial of voiding as outpatient next week and outpatient cystoscopy. -Hematuria resolve, will resume ASA and warfarin -Urine culture negative Ileus -Pt had colonoscopy 12/02, no BM since bowel prep and passing little gas. -KUB consistent with ileus -Dulcolax 10 mg PO qd -Resume diet Lumbar Back Pain/Herniated Discs with Ambulatory Dysfunction: -Lidoderm patch daily and Percocet PRN; obtain PT/OT evaluations TIA with Basilar Artery Stenosis/Malformation, possible PAF on Coumadin: -Will resume coumadin 2.5/5 mg as hematuria resolved -INR currently 1.2, continue to monitor HTN/HLD/CAD S/P PCI in LAD: Follows with Dr. Yoon -Resume ASA as hematuria resolved -Lisinopril 2.5 mg daily, Metoprolol 12.5 mg daily, and Imdur 30 mg daily; Simvastatin 10 mg daily JESSICA on CPAP: -May use own CPAP DVT Prophylaxis -SCDs, warfarin resumed but not yet therapeutic Disposition: -PT/OT evaluations - lives at home with his (Marycruz Booker ., ALIVIAC) STACI Physician Supervision Note: I interviewed and examined the patient. Discussed with Marycruz Booker PAC and agree with findings and plan as documented in the note. Any exceptions or clarifications are listed here: None Patient says he feels somewhat better he appears to have chronic lung disease with barrel chest and he uses some accessory muscles of breathing during my exam his urine is completely clear Vital signs are stable Lungs have decreased breath sounds in sprung expiratory rate abdomen is slightly distended tympanitic but soft with normoactive bowel sounds Patient is here with a transfer from [facility] with a mild COPD exacerbation some hematuria which is cleared we will continue to taper steroid therapy use bronchodilators for in light of care and look for physical therapy read about rehabilitation Documented By: Guerrero Juarez (Guerrero Juarez M.D.)
[2017-12-04] MEDS: MAGNESIUM HYDROXIDE SUSP 30 ML UDC PO PRN (12:34)
[2017-12-04] MEDS ORDERED: BISACODYL 5 MG TABEC PO ONE (14:16)
[2017-12-04 15:08] VITALS: BP 122/69; PULSE 87; TEMP 36.5; O2SAT 93
[2017-12-04] MEDS ORDERED: WARFARIN SOD 2.5 MG TAB PO SCH (16:00)
[2017-12-04] MEDS: LEVOFLOXACIN / D5W 500 MG in PREMIXED IN D5W 100 ML IV SCH (18:41)
[2017-12-04 20:29] VITALS: BP 153/81; PULSE 87
[2017-12-04] MEDS: LATANOPROST 0.005% OP SOLN 2.5 ML BTL OP SCH (20:30)
[2017-12-04] MEDS: SIMVASTATIN 10 MG TAB PO SCH (20:32)
[2017-12-04] MEDS: TAMSULOSIN HCL 0.4 MG CAP PO SCH (20:32)
[2017-12-04] MEDS: METOPROLOL TARTRATE 25 MG TAB PO SCH (20:35)
[2017-12-04 21:31] VITALS: BP_SYST 125; BP_SYST 138; BP_SYST 147; BP_DIAS 71; BP_DIAS 72; BP_DIAS 79; PULSE 86; PULSE 92; PULSE 95
[2017-12-04 22:46] VITALS: BP 135/87; PULSE 78; TEMP 36.7; O2SAT 90
[2017-12-05] MEDS: METHYLPREDNISOLONE IV 60 MG in SYRINGE 0 ML IV SCH ×3 (01:25→21:15)
[2017-12-05 06:21] LABS: HEMATOCRIT 35.4 % (42-52); HEMOGLOBIN 11.8 g/dL (14.0-18.0); MEAN CELL VOLUME 93.9 fL (80-100); MEAN CORPUSCULAR HEMOGLOBIN 31.3 pg (25-34); MEAN CORPUSCULAR HGB CONC 33.3 g/dl (32-36); MEAN PLATELET VOLUME 9.4 fL (7.4-10.4); PLATELET COUNT 177 K/uL (130-400); RED CELL DISTRIBUTION WIDTH CV 13.7 % (11.5-14.5); RED CELL DISTRIBUTION WIDTH SD 47.2 fL (36.4-46.3); WHITE BLOOD COUNT 8.66 K/uL (4.8-10.8)
[2017-12-05 06:34] LABS: INR 1.2 (0.9-1.1)
[2017-12-05 06:55] LABS: CALCIUM 8.5 mg/dl (8.5-10.1); CREATININE 1.14 mg/dl (0.60-1.40); POTASSIUM 4.7 mmol/L (3.5-5.1)
[2017-12-05 07:45] VITALS: BP 137/79; PULSE 79; TEMP 36.5; O2SAT 97
[2017-12-05] MEDS: ISOSORBIDE MONONITRATE 30 MG TABCR PO SCH (08:34)
[2017-12-05] MEDS: CEROVITE ADV FORMULA TAB PO SCH (08:34)
[2017-12-05] MEDS: ASPIRIN 81 MG ECTAB PO SCH (08:35)
[2017-12-05] MEDS: LISINOPRIL 5 MG TAB PO SCH (08:36)
[2017-12-05] MEDS: TIOTROPIUM BROMIDE 5 PUFF/90 MCG INH INH SCH (08:36)
[2017-12-05] MEDS: RANITIDINE HCL 150 MG TAB PO SCH ×2 (08:38→21:14)
[2017-12-05] MEDS: BISACODYL 5 MG TABEC PO SCH (09:58)
[2017-12-05] MEDS: LIDODERM (LIDOCAINE) PATCH 5% TD SCH (09:58)
[2017-12-05] MEDS: SODIUM CHLORIDE 0.9% 1000ML 1,000 ML IV SCH (09:59)
--- NOTE | 2017-12-05 13:40 | Progress Note ---
Subjective Date of Service: Dec 05, 2017. Subjective Pt evaluation today including: conversation w/ patient, chart review, lab review Voiding: garcias catheter in place (patent, draining clear, yellow urine ) 82 yo male with UR. Pt denies issues with garcias catheter this afternoon. Tolerating Flomax well. No evidence for orthostasis. PSA noted to be normal at 1.84. Review of Systems Constitutional: No fever, No chills Respiratory: No shortness of breath Cardiac: No chest pain Abdomen: No pain, No nausea, No vomiting Male : No hematuria Heme: No abnormal bleeding/bruising Objective Vital Signs Date Time Temp Pulse Resp B/P (MAP) Pulse Ox O2 Delivery O2 Flow Rate FiO2 12/05/17 08:20 Nasal Cannula 2.0 12/05/17 07:45 36.5 79 15 137/79 (98) 97 Nasal Cannula 3.0 12/04/17 22:46 36.7 78 16 135/87 (103) 90 BiPAP 3.0 12/04/17 21:31 86 125/71 (89) 92 147/72 (97) 95 138/79 (98) 12/04/17 20:29 87 153/81 (105) 12/04/17 20:00 Nasal Cannula 2.0 12/04/17 15:08 36.5 87 18 122/69 (86) 93 Nasal Cannula 2.0 Physical Exam General Appearance: no apparent distress Eyes: normal inspection ENT: hearing grossly normal Neck: no JVD Respiratory/Chest: no respiratory distress, no accessory muscle use Cardiovascular: no JVD Extremities: normal inspection Neurologic/Psychiatric: alert, normal mood/affect, oriented x 3 Skin: normal color Laboratory Results Last 24 Hours Test 12/05/17 06:01 White Blood Count 8.66 K/uL Red Blood Count 3.77 M/uL Hemoglobin 11.8 g/dL Hematocrit 35.4 % Mean Corpuscular Volume 93.9 fL Mean Corpuscular Hemoglobin 31.3 pg Mean Corpuscular Hemoglobin Concent 33.3 g/dl RDW Standard Deviation 47.2 fL RDW Coefficient of Variation 13.7 % Platelet Count 177 K/uL Mean Platelet Volume 9.4 fL Prothrombin Time 12.4 SECONDS Prothromb Time International Ratio 1.2 Sodium Level 138 mmol/L Potassium Level 4.7 mmol/L Chloride Level 104 mmol/L Carbon Dioxide Level 29 mmol/L Anion Gap 5.0 mmol/L Blood Urea Nitrogen 32 mg/dl Creatinine 1.14 mg/dl Est Creatinine Clear Calc Drug Dose 45.8 ml/min Estimated GFR () 68.5 Estimated GFR (Non- 59.1 BUN/Creatinine Ratio 28.0 Random Glucose 129 mg/dl Calcium Level 8.5 mg/dl Magnesium Level 2.6 mg/dl Assessment and Plan A/P: Urinary retention, gross hematuria AFVSS. Hematuria resolved. UC&S negative. Cytology pending. Will plan to leave garcias catheter in place until next week. Outpatient trial of void at that time. Will arrange. Continue Flomax. Will also need outpatient cysto to complete hematuria eval. Will arrange as well. No further management at this time. Recall PRN issues. Thanks for allowing us to participate in this pt's care.
--- NOTE | 2017-12-05 14:39 | Hospitalist Progress Note ---
Hospitalist Progress Note Date of Service Dec 05, 2017. (Marycruz Booker .ALIVIAC) Subjective Pt evaluation today including: conversation w/ patient, physical exam, chart review, lab review, review of inpatient medication list Pain: None PO Intake: Tolerating PO diet Voiding: garcias catheter in place (clear urine) Patient reports feeling better. He denies any abdominal pain currently. He states he had a bowel movement yesterday and another small one this morning. He is passing more gas. He is tolerating a PO diet. He reports SOB and ELDRIDGE but reports this is around baseline. He states his abdomen feels less distended today. The patient denies fevers, chills, sweats, chest pain, palpitations, claudication, cough, wheezing, nausea, vomiting, abdominal pain, dysuria, hematuria, urinary retention, paralysis, weakness, numbness and tingling. Additional Comments: See HPI for pertinent positives and negatives. All other systems reviewed and negative. (Marycruz Booker PA-C) Objective Vital Signs Date Time Temp Pulse Resp B/P (MAP) Pulse Ox O2 Delivery O2 Flow Rate FiO2 12/05/17 08:20 Nasal Cannula 2.0 12/05/17 07:45 36.5 79 15 137/79 (98) 97 Nasal Cannula 3.0 12/04/17 22:46 36.7 78 16 135/87 (103) 90 BiPAP 3.0 12/04/17 21:31 86 125/71 (89) 92 147/72 (97) 95 138/79 (98) 12/04/17 20:29 87 153/81 (105) 12/04/17 20:00 Nasal Cannula 2.0 12/04/17 15:08 36.5 87 18 122/69 (86) 93 Nasal Cannula 2.0 (Marycruz Booker .STACI-C) Physical Exam Notes: General appearance: Well-developed, well-nourished, no apparent distress Head: Normocephalic, atraumatic Eyes: Normal inspection, PERRL, EOMI ENT: Normal ENT inspection, hearing grossly normal, pharynx normal Neck: Supple, no JVD, trachea midline Respiratory/Chest: +Currently on 3L NC. Long expiratory wheezing throughout, stable. Normal breath sounds, no respiratory distress Cardiovascular: Regular rate & rhythm, no gallop, no murmur Abdomen/GI: +Less distended, softer today. Normal bowel sounds, non-tender. Extremities/Musculoskeletal: Normal inspection, no calf tenderness, no pedal edema Neurological/Psych: Alert, normal mood/affect, oriented x 3 Skin: Normal color, warm/dry, no rash (Marycruz Booker ., PA-C) Laboratory Results Last 24 Hours Test 12/05/17 06:01 White Blood Count 8.66 K/uL Red Blood Count 3.77 M/uL Hemoglobin 11.8 g/dL Hematocrit 35.4 % Mean Corpuscular Volume 93.9 fL Mean Corpuscular Hemoglobin 31.3 pg Mean Corpuscular Hemoglobin Concent 33.3 g/dl RDW Standard Deviation 47.2 fL RDW Coefficient of Variation 13.7 % Platelet Count 177 K/uL Mean Platelet Volume 9.4 fL Prothrombin Time 12.4 SECONDS Prothromb Time International Ratio 1.2 Sodium Level 138 mmol/L Potassium Level 4.7 mmol/L Chloride Level 104 mmol/L Carbon Dioxide Level 29 mmol/L Anion Gap 5.0 mmol/L Blood Urea Nitrogen 32 mg/dl Creatinine 1.14 mg/dl Est Creatinine Clear Calc Drug Dose 45.8 ml/min Estimated GFR () 68.5 Estimated GFR (Non- 59.1 BUN/Creatinine Ratio 28.0 Random Glucose 129 mg/dl Calcium Level 8.5 mg/dl Magnesium Level 2.6 mg/dl (Marycruz Booker ., PA-C) Assessment and Plan 82 y/o male with a history of HTN, HLD, CAD S/P PCI in LAD, JESSICA on CPAP, COPD, GERD, TIA, 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 Acute on Chronic Hypoxic Respiratory Failure 2/2 COPD Exacerbation--improving -O2 by protocol. 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 Traylor -CXR no acute disease -Continue Levaquin 500 mg IV daily, day #3 -Decrease Solu-Medrol to 60 mg IV q12h -Spiriva 1 puff daily Hematuria with Urinary Retention/Enlarged Prostate--resolved -Likely traumatic cath insertion in setting of anticoagulation -Urology consulted, appreciate recs: Cytology pending. continue Flomax. Trial of voiding as outpatient next week and outpatient cystoscopy to evaluate hematuria. Will sign off. -Hematuria resolved, will resume ASA and warfarin -Urine culture negative Ileus--improving -Pt had colonoscopy 12/02 -KUB consistent with ileus -Continue Dulcolax 10 mg PO qd -1 moderate BM yesterday, passing more gas -Repeat KUB in am Lumbar Back Pain/Herniated Discs with Ambulatory Dysfunction: -Lidoderm patch daily and Percocet PRN; obtain PT/OT evaluations TIA with Basilar Artery Stenosis/Malformation, possible PAF on Coumadin: -Continue Coumadin 2.5/5 mg -INR remains at 1.2 HTN/HLD/CAD S/P PCI in LAD: Follows with Dr. Yoon -Resume ASA as hematuria resolved -Lisinopril 2.5 mg daily, Metoprolol 12.5 mg daily, and Imdur 30 mg daily; Simvastatin 10 mg daily JESSICA on CPAP: -May use own CPAP DVT Prophylaxis -SCDs, warfarin resumed but not yet therapeutic Disposition: -PT/OT evaluations: can return home with outpatient PT when medically stable (Marycruz Booker ., PA-C) PA Physician Supervision Note: I interviewed and examined the patient. Discussed with Marycruz Booker PAC and agree with findings and plan as documented in the note. Any exceptions or clarifications are listed here: None Patient is doing well says he feels almost back to his baseline however he is mildly deconditioned. His family is suggesting the swing bed subacute rehab at [facility] he however has been released for PT OT evaluations were asked him to reevaluate with eye towards whether he qualifies for subacute rehab Temperature 36 5 pulse 79 respiration rate 15 blood pressure 137/79 Lungs he is barrel chested is decreased breath sounds generally this is likely based upon underlying COPD he will likely be home on oxygen his hematuria has improved Continue treating his COPD exacerbation with an eye toward subacute rehab in the future Documented By: Guerrero Juarez (Guerrero Juarez M.D.)
[2017-12-05] MEDS ORDERED: WARFARIN SOD 5 MG TAB PO SCH (16:00)
[2017-12-05 16:03] VITALS: BP 105/65; PULSE 82; TEMP 36.6; O2SAT 94
[2017-12-05] MEDS: LEVOFLOXACIN / D5W 500 MG in PREMIXED IN D5W 100 ML IV SCH (18:44)
[2017-12-05 20:20] VITALS: BP 142/71
[2017-12-05 21:10] VITALS: BP 138/73; PULSE 75
[2017-12-05] MEDS: LATANOPROST 0.005% OP SOLN 2.5 ML BTL OP SCH (21:14)
[2017-12-05] MEDS: METOPROLOL TARTRATE 25 MG TAB PO SCH (21:14)
[2017-12-05] MEDS: TAMSULOSIN HCL 0.4 MG CAP PO SCH (21:14)
[2017-12-05] MEDS: SIMVASTATIN 10 MG TAB PO SCH (21:15)
[2017-12-05 22:30] VITALS: BP_SYST 134; BP_SYST 142; BP_SYST 161; BP_DIAS 63; BP_DIAS 71; BP_DIAS 76
[2017-12-05 23:21] VITALS: BP 129/79; PULSE 69; TEMP 36.5; O2SAT 95
[2017-12-06] MEDS: SODIUM CHLORIDE 0.9% 1000ML 1,000 ML IV SCH (02:04)
[2017-12-06 07:42] VITALS: BP 130/80; PULSE 68; TEMP 36.8; O2SAT 92
[2017-12-06 08:02] LABS: HEMATOCRIT 37.8 % (42-52); HEMOGLOBIN 12.1 g/dL (14.0-18.0); MEAN CELL VOLUME 94.3 fL (80-100); MEAN CORPUSCULAR HEMOGLOBIN 30.2 pg (25-34); MEAN PLATELET VOLUME 9.6 fL (7.4-10.4); PLATELET COUNT 208 K/uL (130-400); RED CELL DISTRIBUTION WIDTH CV 13.5 % (11.5-14.5); RED CELL DISTRIBUTION WIDTH SD 46.6 fL (36.4-46.3); WHITE BLOOD COUNT 10.74 K/uL (4.8-10.8)
[2017-12-06 08:10] LABS: INR 1.1 (0.9-1.1)
--- NOTE | 2017-12-06 08:20 | DIAGNOSTIC IMAGING REPORT ---
KUB HISTORY: follow up ileus COMPARISON: KUB 12/03/2017. FINDINGS: Interval improvement in the mildly dilated gas-filled loops of large and small bowel. Surgical clips seen within the right groin. No evidence for bowel obstruction. Gas remains within the rectum. The lung bases are clear. No renal calculi. No ureteral calculi. No pneumoperitoneum or pneumatosis. IMPRESSION: Interval improvement in the mild ileus. No evidence for bowel obstruction. Electronically signed by: Florencio Obrien M.D. 12/06/2017 8:19 AM Dictated Date/Time: 12/06/2017 8:09 AM
[2017-12-06 08:43] LABS: CALCIUM 8.2 mg/dl (8.5-10.1); CREATININE 1.01 mg/dl (0.60-1.40); POTASSIUM 4.8 mmol/L (3.5-5.1)
[2017-12-06] MEDS: RANITIDINE HCL 150 MG TAB PO SCH (08:52)
[2017-12-06] MEDS: BISACODYL 5 MG TABEC PO SCH (08:52)
[2017-12-06] MEDS: ISOSORBIDE MONONITRATE 30 MG TABCR PO SCH (08:52)
[2017-12-06] MEDS: TIOTROPIUM BROMIDE 5 PUFF/90 MCG INH INH SCH (08:52)
[2017-12-06] MEDS: CEROVITE ADV FORMULA TAB PO SCH (08:52)
[2017-12-06] MEDS: ASPIRIN 81 MG ECTAB PO SCH (08:53)
[2017-12-06] MEDS: LISINOPRIL 5 MG TAB PO SCH (08:53)
[2017-12-06] MEDS: LIDODERM (LIDOCAINE) PATCH 5% TD SCH (08:55)
[2017-12-06] MEDS: METHYLPREDNISOLONE IV 60 MG in SYRINGE 0 ML IV SCH (09:00)
[2017-12-06] MEDS ORDERED: DLC5 PO (13:29)
[2017-12-06] MEDS ORDERED: FLM4 PO (13:29)
[2017-12-06] MEDS ORDERED: PRED10TA PO (13:29)
--- NOTE | 2017-12-06 13:46 | Discharge Instructions ---
Discharge Instructions Date of Service Dec 06, 2017. Admission Reason for Admission: Gross Hematuria, Shortness Of Breath Discharge Discharge Diagnosis / Problem: Chronic obstructive pulmonary disease exacerbation, ileus, hematuria Discharge Goals Goal(s): Decrease discomfort, Improve function, Diagnostic testing, Therapeutic intervention Activity Recommendations Activity Level: Assistance Required Therapies: Physical Therapy, Occupational Therapy . Additional Information Patient informed of condition: Yes Advance Directives: Yes DNR: Yes Level of Care: Skilled Communicable Disease: No Prognosis: Stable Oxygen at (LPM): wears 2L continuous at baseline Gomez Catheter: Yes Instructions / Follow-Up Instructions / Follow-Up The patient was transferred from [facility] with hematuria following a traumatic cath, COPD exacerbation, and ileus. The patient was evaluated by urology and started on Flomax. The hematuria has resolved and he has resumed anticoagulation. His Gomez catheter is to remain in place until he follows up with urology as an outpatient. His COPD exacerbation was treated with IV steroids and his home inhalers. He also developed an ileus despite have a colonoscopy a few days prior. He was treated with Dulcolax, and this is now improving. He is moving his bowels and passing gas. He is now medically stable for transfer to SNF for subacute rehab. Medications: *Levaquin 500 mg by mouth for 1 more day to complete 5 day course. *Prednisone taper: 40 mg daily for 2 days, then 20 mg daily for 2 days, then 10 mg daily for 2 days, then stop. *Flomax 0.4 mg at bedtime. *Continue other home medications as prescribed. Follow up: *Please have patient follow up with primary care provider within 1 week. *Follow up with urology next week for trial of voiding and outpatient cystoscopy for further evaluation of hematuria. *Recommend repeat KUB x-ray in 2-3 days to ensure resolution. Please seek medical attention if patient experiences fevers, chills, sweats, dizziness/lightheadedness, loss of consciousness, chest pain, shortness of breath, nausea, vomiting, numbness or tingling. Current Hospital Diet Patient's current hospital diet: AHA Diet (Heart Healthy) Discharge Diet Recommended Diet: AHA Diet (Heart Healthy) Pending Studies Studies pending at discharge: no Physician Orders On Transfer Special Precautions: Fall precautions Vital Signs: Routine Additional Orders: Gomez catheter to REMAIN IN PLACE until follow up with urology for trial of voiding Medical Emergencies . Who to Call and When: Medical Emergencies: If at any time you feel your situation is an emergency, please call 911 immediately. . Non-Emergent Contact Non-Emergency issues call your: Primary Care Provider, Urologist Call Non-Emergent contact if: you have a fever, your pain is not controlled, your pain is worsening, your pain is unusual for you, your pain is concerning you, you have any medication questions . Past History Medical & Surgical History: (1) Ileus (2) Hematuria (3) COPD exacerbation . "Provider Documentation" section prepared by Marycruz Booker. . Core Measure Problem Core Measures: None
--- NOTE | 2017-12-06 13:57 | Discharge Summary ---
Discharge Summary Date of Service Dec 06, 2017. 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 FINDINGS: Interval improvement in the mildly dilated gas-filled loops of large and small bowel. Surgical clips seen within the right groin. No evidence for bowel obstruction. Gas remains within the rectum. The lung bases are clear. No renal calculi. No ureteral calculi. No pneumoperitoneum or pneumatosis. IMPRESSION: Interval improvement in the mild ileus. No evidence for bowel obstruction. Consultations: Urology Medication Reconciliation New Medications: Prednisone (Prednisone) 10 Mg Tab 10 MG PO UD for 6 Days, #14 TAB Take 4 tablets for 2 days, then 2 tablets for 2 days, then 1 tablet for 2 days Bisacodyl (Bisacodyl EC) 5 Mg Tabec 10 MG PO DAILY for 5 Days, #10 TABS Tamsulosin HCl (Tamsulosin HCl) 0.4 Mg Cap 0.4 MG PO HS for 30 Days, #30 CAP Continued Medications: Acetaminophen (Tylenol Arthritis Ext Rel) 650 Mg Cplt 650 MG PO BID, CAP Albuterol Hfa (Ventolin Hfa) 200 Puffs/26825 Mcg Aers 2-4 PUFFS INH Q6H, #1 INHALER Aspirin (Aspirin Ec) 81 Mg Tab 81 MG PO QAM Calcium (Calcium) 600 Mg Tab 1 TAB PO QAM Home O2 Therapy (Oxygen) Gas 2 LITERS NA PRN, #1 OXYGEN 2LTS VIA NASAL CANULA CONTINOUS WHILE AMBULATING Isosorbide Mononitrate Ext Rel (Imdur Ext Rel) 30 Mg Tabcr 1 TAB PO QAM, TAB Latanoprost (Xalatan 0.005% Oph Caroline) 0.005 % Caroline 1 DROPS OP HS, #2.5 ML 3 Refills Lisinopril (Zestril) 5 Mg Tab 2.5 MG PO QAM, TAB Metoprolol Tartrate (Lopressor) (Lopressor) 25 Mg Tab 12.5 MG PO HS, TAB Ocuvite Preservision (Ocuvite Preservision) 1 Tab Tab 1 TAB PO QAM, TAB Oxycodone/Acetaminophen 5MG/325MG (Percocet 5MG/325MG) Tab 1-2 TABLETS PO Q4-6H PRN for Pain, #60 TAB Ranitidine (Zantac) 150 Mg Tab 1 TAB PO BID for 30 Days, #60 TAB 3 Refills Simvastatin (Simvastatin) 10 Mg Tab 1 TAB PO HS Tiotropium Martin (Spiriva Handihaler) 30 Puff/540 Mcg Aerp 1 CAP INH QAM, INHALER Trolamine Salicylate (Aspercreme) Unknown Strength Lot Unknown Dose TOP UD PRN for Pain Warfarin Sodium (Coumadin) 5 Mg Tab 5 MG PO 5XWK, TAB SUN, MON, TUE, THUR AND FRI - TAKES IN PM HAS PRE OP INSTRUCTIONS FOR LOVENOX BY FAMILY DOC Warfarin Sodium (Coumadin) 2 Mg Tab 2.5 MG PO 2XWK, TAB WED AND SAT - TAKES IN PM PT RECEIVED INSTRUCTIONS FOR PREOP LOVENOX BY PCP Discharge Exam Patient reports feeling well. He denies any shortness of breath at rest. He was up walking earlier and had only minimal dyspnea on exertion. He still complains of a productive cough. He denies abdominal pain. He has not yet had a BM today but is passing gas and feels that he will move his bowels later today. The patient denies fevers, chills, sweats, chest pain, palpitations, claudication, cough, wheezing, shortness of breath at rest, nausea, vomiting, abdominal pain, dysuria, hematuria, urinary retention, paralysis, weakness, numbness and tingling. Constitutional: No fever, No chills, No sweats Eyes: No worsening of vision, No eye pain, No diplopia ENT: No hearing loss, No nasal symptoms, No trouble swallowing Respiratory: +ELDRIDGE improved. Cough. No wheezing Cardiovascular: No chest pain, No claudication, No palpitations Abdomen: No pain, No nausea, No vomiting Musculoskeletal: No joint pain, No muscle pain, No swelling Genitourinary - Male: No dysuria, No urinary retention, No hematuria Neurologic: No paralysis, No weakness, No numbness/tingling Integumentary: No rash, No itch, No color change General appearance: Well-developed, well-nourished, no apparent distress Head: Normocephalic, atraumatic Eyes: Normal inspection, PERRL, EOMI ENT: Normal ENT inspection, hearing grossly normal, pharynx normal Neck: Supple, no JVD, trachea midline Respiratory/Chest: +Currently on 2L NC which is baseline. Long expiratory wheezing improved. 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 Acute on Chronic Hypoxic Respiratory Failure 2/2 COPD Exacerbation--improving -O2 by protocol. Pt wears 2L continuous at home, has been on 2-3L here -Recently established with outpatient customer sales advisor who plans on PFTs - Dr. Traylor -CXR no acute disease -Continue Levaquin 500 mg IV daily, day #4 of 5, continue as outpatient -Solu-Medrol to 60 mg IV q12h. D/C with prednisone taper: 40 mg x 2 days, 20 mg x 2 days, 10 mg x 2 days -Spiriva 1 puff daily Hematuria with Urinary Retention/Enlarged Prostate--resolved -Likely traumatic cath insertion in setting of anticoagulation -Urology consulted, appreciate recs: Continue Flomax. Trial of voiding as outpatient next week and outpatient cystoscopy to evaluate hematuria. Will sign off. -Hematuria resolved, will resume ASA and warfarin -Urine culture negative -Urine cytology negative for carcinoma Ileus--improving -Pt had colonoscopy 12/02 -KUB consistent with ileus -Continue Dulcolax 10 mg PO qd -Did have a moderate BM, passing gas -Repeat KUB shows improvement of mild ileus Lumbar Back Pain/Herniated Discs with Ambulatory Dysfunction: -Lidoderm patch daily and Percocet PRN; obtain PT/OT evaluations TIA with Basilar Artery Stenosis/Malformation, possible PAF on Coumadin: -Continue Coumadin 2.5/5 mg -INR remains at 1.1, not bridging due to recent hematuria HTN/HLD/CAD S/P PCI in LAD: Follows with Dr. Yoon -Resume ASA as hematuria resolved -Lisinopril 2.5 mg daily, Metoprolol 12.5 mg daily, and Imdur 30 mg daily; Simvastatin 10 mg daily JESSICA on CPAP: -May use own CPAP DVT Prophylaxis -SCDs, warfarin resumed but not yet therapeutic Disposition: -PT/OT evaluations: inpatient rehab -Accepted to [facility] for subacute rehab [place] Physician Supervision Note: I interviewed and examined the patient. Discussed with Marycruz DUBOIS and agree with findings and plan as documented in the note. Any exceptions or clarifications are listed here: None Patient is doing well surrounded by family today he feels stable enough to go back to rehabilitation I did personally call his daughter Little and updated her on her his plan of care he also spoke to the and other daughter who is at the bedside His vital signs are stable he does require supplemental oxygen temperature 36 8 pulse is 60 respiration 20 BP 130/80 I reviewed his KUB does look improved over presentation from wearing an ileus present he remains in a Gomez catheter time of discharge with a with a leg bag to have follow-up with [facility] Patient's lungs have diminished breath sounds and poor expiratory movement of air consistent with chronic COPD Documented By: Guerrero Juarez Total Time Spent: Greater than 30 minutes This includes examination of the patient, discharge planning, medication reconciliation, and communication with other providers. Discharge Instructions Please refer to the electronic Patient Visit Report (Discharge Instructions) for additional information. Follow-Up PCP Urology Additional Copies To Surjit Knowles M.D.
[2017-12-06 14:00] VITALS: BP 130/80; PULSE 68; TEMP 36.8; O2SAT 92
== END 2017-12-06 14:45 | DRG 190 ==
LOC: C.MED 15:32 → C.MSN 15:32 → UNDOADMIN 15:32
PROVIDERS: ADMIT Internal Medicine; ATTEND Internal Medicine
DX: J44.1 Chronic obstructive pulmonary disease with (acute) exacerbation (principal); J96.21 Acute and chronic respiratory failure with hypoxia; K56.7 Ileus, unspecified; N40.1 Benign prostatic hyperplasia with lower urinary tract symptoms; R31.0 Gross hematuria; R59.0 Localized enlarged lymph nodes; I10 Essential (primary) hypertension; E78.5 Hyperlipidemia, unspecified; I25.10 Atherosclerotic heart disease of native coronary artery without angina pectoris; G47.33 Obstructive sleep apnea (adult) (pediatric); I48.0 Paroxysmal atrial fibrillation; M54.5 Low back pain; Z79.01 Long term (current) use of anticoagulants; Z79.82 Long term (current) use of aspirin; Z79.899 Other long term (current) drug therapy; Z86.73 Personal history of transient ischemic attack (TIA), and cerebral infarction without residual deficits; Z87.891 Personal history of nicotine dependence; Z95.5 Presence of coronary angioplasty implant and graft; Z99.81 Dependence on supplemental oxygen

== ENCOUNTER → 2017-12-24 | Outpatient (CLI) | payer OTHER ==
[~2017-12-24] MED LIST changes: +DLC5 PO; -ENOX40IN SQ; +FLM4 PO
== END | disposition home or self-care (01) ==
LOC: C.LABSPEC 16:54 → C.PATHSPEC 16:55
PROVIDERS: ATTEND Urology
DX: R31.0 Gross hematuria (principal)